=== PATIENT | female | born 1930 | race Caucasian/White ===

== ENCOUNTER → 2017-04-27 | Outpatient (CLI) | payer MEDICARE ==
--- NOTE | 2017-04-28 13:19 | REP ---
Whole body PET CT scan: The the patient reportedly had a CT of the chest and no [facility] on 04/15/2017. Images from that study are not available for review. However, the CT CT scan accompanying the PET scan today demonstrates a nodule in the upper lobe of the left lung posterior O lateral inferiorly. Additionally there is a second nodule in the apex of the left lung. There is a third nodule posteriorly in the left upper lobe abutting the major fissure. There is a subsegmental infiltrate in the deep posterior sulcus of the left lung. Whole-body scanning is performed from skull base to the upper thighs. Neck and supraclavicular areas: There is artifactual on hypermetabolic uptake in tonsillar tissues and in the left scalenus muscles. Chest: There is artifactual uptake in the subscapularis and supraspinatus muscles of the shoulders bilaterally. The most intense uptake is in the right subscapularis. None of the three left upper lobe lung nodules demonstrates hypermetabolic uptake: The standard uptake value of the nodule in the left apex is 1.5. The standard uptake value of the nodule posteriorly abutting the major fissure is 1.1. The standard uptake value in the nodule that is posterolateral inferiorly in the left lung is 1.3. There are no hypermetabolic foci in the chest elsewhere. Abdomen, pelvis and upper thighs: There are no hypermetabolic foci. Impression: There are no hypermetabolic foci. The three nodules identified in the upper lobe of the left lung demonstrates non hypermetabolic uptake. The study is performed with 10 mCi of F 18 FDG. Signed by Rafy Pickett MD 04/28/2017 09:44 A
== END ==
LOC: M PLARAD 07:35
PROVIDERS: ATTEND Family Medicine
DX: R91.8 Other nonspecific abnormal finding of lung field (principal)
CPT/HCPCS: 78815; A9552

== ENCOUNTER → 2017-06-22 | Outpatient (REF) | payer MEDICARE ==
[2017-06-22 18:35] LABS: IMMUNOGLOBULIN G 1870 MG/DL (681-1648); IMMUNOGLOBULIN M 135 MG/DL (40-230); TOTAL PROTEIN 7.9 GM/DL (6.4-8.2)
[2017-06-24 13:54] LABS: ALBUMIN % 49.4 % (55.8-66.1); GAMMA GLOBULIN % 23.6 % (11.1-18.8)
[2017-06-25 00:07] LABS: BETA 2 MICROGLOBULIN 4.8 mg/L (0.6-2.4); FREE KAPPA LIGHT CHAINS SERUM 106.9 mg/L (3.3-19.4); FREE LAMBDA LIGHT CHAINS SERUM 63.1 mg/L (5.7-26.3); KAPPA/LAMBDA RATIO SERUM 1.69 (0.26-1.65)
== END ==
LOC: M LAB REF 16:43
PROVIDERS: ATTEND Internal Medicine Medical Oncology
DX: D64.9 Anemia, unspecified (principal)

== ENCOUNTER → 2017-10-13 | Outpatient (CLI) | payer MEDICARE ==
[2017-10-13 12:57] LABS: BASO % 0.1 % (0.0-1.0); EOS # 0.1 10^3/uL (0.0-0.50); EOS % 0.8 % (0.0-3.0); HEMATOCRIT 35.6 % (36.0-47.0); HEMOGLOBIN 11.9 g/dl (12.0-16.0); IMMATURE GRANULOCYTE # 0.2 10^3/uL (0-0); IMMATURE GRANULOCYTE % 1.4 % (0-0); LYMPH # 1.2 10^3/uL (1.5-4.5); LYMPH % 10.2 % (24.0-44.0); MEAN CORPUSCULAR HEMOGLOBIN 33.1 pg (27.0-33.0); MEAN CORPUSCULAR HGB CONC 33.4 g/dl (32.0-36.5); MEAN CORPUSCULAR VOLUME 98.9 fl (80.0-96.0); MONO # 0.8 10^3/uL (0.0-0.8); NEUTROPHILS # 9.3 10^3/uL (1.8-7.7); NEUTROPHILS % 80.5 % (36.0-66.0); PLATELET COUNT, AUTOMATED 232 10^3/uL (150-450); RED CELL DISTRIBUTION WIDTH 13.6 % (11.5-14.5); WHITE BLOOD COUNT 11.5 10^3/uL (4.0-10.0)
[2017-10-13 13:15] LABS: INR 3.71; PROTHROMBIN TIME 38.6 SECONDS (12.4-14.5)
== END ==
LOC: M LAB 10:36
DX: N18.9 Chronic kidney disease, unspecified (principal)

== ENCOUNTER → 2017-10-13 | Outpatient (CLI) | payer MEDICARE ==
[2017-10-13 12:57] LABS: HEMATOCRIT 35.6 % (36.0-47.0); HEMOGLOBIN 11.8 g/dl (12.0-16.0); MEAN CORPUSCULAR HGB CONC 33.1 g/dl (32.0-36.5); MEAN CORPUSCULAR VOLUME 99.4 fl (80.0-96.0); PLATELET COUNT, AUTOMATED 225 10^3/uL (150-450); RED BLOOD COUNT 3.58 10^6/uL (4.00-5.40); RED CELL DISTRIBUTION WIDTH 13.5 % (11.5-14.5); WHITE BLOOD COUNT 11.2 10^3/uL (4.0-10.0)
[2017-10-13 13:03] LABS: APPEARANCE, URINE CLEAR (CLEAR); BACTERIA, URINE AUTO NEGATIVE (NEGATIVE); BILIRUBIN, URINE AUTO NEGATIVE (NEGATIVE); BLOOD, URINE BLOOD NEGATIVE (NEGATIVE); COLOR, URINE YELLOW (YELLOW); GLUCOSE, URINE (UA) AUTO NEGATIVE (NEGATIVE); KETONE, URINE AUTO NEGATIVE (NEGATIVE); LEUKOCYTE ESTERASE, URINE AUTO 1+ (NEGATIVE); NITRITE, URINE AUTO NEGATIVE (NEGATIVE); PROTEIN, URINE AUTO NEGATIVE (NEGATIVE); RBC, URINE AUTO 1 /HPF (0-3); SPECIFIC GRAVITY URINE AUTO 1.009 (1.002-1.035); SQUAMOUS EPITHELIAL CELL UR AU 0 /HPF (0-6); UROBILINOGEN, URINE AUTO 0.2 mg/dL (0.0-2.0); WBC, URINE AUTO 4 /HPF (0-3)
[2017-10-13 13:15] LABS: PROTHROMBIN TIME 37.7 SECONDS (12.4-14.5)
[2017-10-13 13:25] LABS: ERYTHROCYTE SEDIMENTATION RATE 50 mm/hr (0-42)
[2017-10-13 14:01] LABS: ALBUMIN 3.7 GM/DL (3.2-5.2); ALBUMIN/GLOBULIN RATIO 0.84 (1.00-1.93); ALKALINE PHOSPHATASE 45 U/L (45-117); ALT/SGPT 40 U/L (12-78); ANION GAP 7 MEQ/L (8-16); AST/SGOT 39 U/L (7-37); BILIRUBIN,TOTAL 0.6 MG/DL (0.2-1.0); BLOOD UREA NITROGEN 65 MG/DL (7-18); CALCIUM LEVEL 9.3 MG/DL (8.8-10.2); CARBON DIOXIDE LEVEL 33 MEQ/L (21-32); CHLORIDE LEVEL 97 MEQ/L (98-107); CREATININE FOR GFR 2.16 MG/DL (0.55-1.30); GLOMERULAR FILTRATION RATE 23.1 (>32); GLUCOSE, FASTING 94 MG/DL (70-100); POTASSIUM SERUM 4.2 MEQ/L (3.5-5.1); SODIUM LEVEL 137 MEQ/L (136-145); TOTAL PROTEIN 8.1 GM/DL (6.4-8.2)
== END ==
LOC: M ADMPAT 10:25
DX: Z01.818 Encounter for other preprocedural examination (principal); M25.561 Pain in right knee; Z79.01 Long term (current) use of anticoagulants; Z79.899 Other long term (current) drug therapy
CPT/HCPCS: 71046

== ENCOUNTER → 2017-12-27 | Outpatient (REF) | payer MEDICARE ==
[2017-12-27 19:03] LABS: FERRITIN 428 NG/ML (8-252); IRON (FE) 90 UG/DL (50-170); PERCENT SATURATION 36.6 % (13.2-45.0); TOTAL IRON BINDING CAPACITY 246 UG/DL (250-450)
== END ==
LOC: M LAB REF 17:25
DX: N30.10 Interstitial cystitis (chronic) without hematuria (principal); D50.9 Iron deficiency anemia, unspecified
CPT/HCPCS: 83550

== ENCOUNTER → 2018-01-02 | Outpatient (REF) | payer MEDICARE ==
[2018-01-02 18:02] LABS: ERYTHROCYTE SEDIMENTATION RATE 78 mm/hr (0-42)
[2018-01-05 08:06] LABS: BETA 2 MICROGLOBULIN 6.4 mg/L (0.6-2.4)
== END ==
LOC: M LAB REF 16:35
DX: D64.9 Anemia, unspecified (principal)
CPT/HCPCS: 82232

== ENCOUNTER → 2018-01-19 | Outpatient (REF) | payer MEDICARE ==
[2018-01-19 19:49] LABS: APPEARANCE, URINE HAZY (CLEAR); BACTERIA, URINE AUTO NEGATIVE (NEGATIVE); BILIRUBIN, URINE AUTO NEGATIVE (NEGATIVE); BLOOD, URINE BLOOD NEGATIVE (NEGATIVE); COLOR, URINE YELLOW (YELLOW); GLUCOSE, URINE (UA) AUTO NEGATIVE (NEGATIVE); KETONE, URINE AUTO NEGATIVE (NEGATIVE); LEUKOCYTE ESTERASE, URINE AUTO NEGATIVE (NEGATIVE); NITRITE, URINE AUTO NEGATIVE (NEGATIVE); PROTEIN, URINE AUTO NEGATIVE (NEGATIVE); RBC, URINE AUTO 0 /HPF (0-3); SQUAMOUS EPITHELIAL CELL UR AU 0 /HPF (0-6); UROBILINOGEN, URINE AUTO 0.2 mg/dL (0.0-2.0); WBC, URINE AUTO 0 /HPF (0-3)
== END ==
LOC: M SMT 17:14
DX: R33.9 Retention of urine, unspecified (principal)
CPT/HCPCS: 81001

== ENCOUNTER → 2018-02-17 | Outpatient (REF) | payer MEDICARE ==
[2018-02-17 18:21] LABS: APPEARANCE, URINE HAZY (CLEAR); BACTERIA, URINE AUTO NEGATIVE (NEGATIVE); BILIRUBIN, URINE AUTO NEGATIVE (NEGATIVE); BLOOD, URINE BLOOD NEGATIVE (NEGATIVE); COLOR, URINE YELLOW (YELLOW); GLUCOSE, URINE (UA) AUTO NEGATIVE (NEGATIVE); KETONE, URINE AUTO NEGATIVE (NEGATIVE); LEUKOCYTE ESTERASE, URINE AUTO NEGATIVE (NEGATIVE); NITRITE, URINE AUTO NEGATIVE (NEGATIVE); PROTEIN, URINE AUTO NEGATIVE (NEGATIVE); RBC, URINE AUTO 0 /HPF (0-3); SPECIFIC GRAVITY URINE AUTO 1.005 (1.002-1.035); SQUAMOUS EPITHELIAL CELL UR AU 0 /HPF (0-6); UROBILINOGEN, URINE AUTO 0.2 mg/dL (0.0-2.0); WBC, URINE AUTO 0 /HPF (0-3)
== END ==
LOC: M LAB REF 17:05
DX: M17.11 Unilateral primary osteoarthritis, right knee (principal); Z79.899 Other long term (current) drug therapy; Z87.440 Personal history of urinary (tract) infections
CPT/HCPCS: 81001

== ENCOUNTER → 2018-02-20 | Outpatient (CLI) | payer MEDICARE | LOC: M ADMPAT 11:32 | DX: Z01.818 Encounter for other preprocedural examination (principal); M17.11 Unilateral primary osteoarthritis, right knee ==

== ENCOUNTER 2018-02-27 07:15 | Inpatient (IN) | payer MEDICARE ==
[2018-02-27] MEDS ORDERED: EPINEPHrine INJ 1 MG/ML 1ML AMP As Ordered (07:25)
[2018-02-27] MEDS ORDERED: LIDOCAINE 1% MDV 20ML VIAL SQ (07:45)
[2018-02-27 08:03] LABS: INR 1.15; PROTHROMBIN TIME 14.9 SECONDS (12.4-14.5)
[2018-02-27] MEDS: LR 1,000 ML IV ×4 (08:11→20:49)
[2018-02-27 08:13] LABS: GLUCOSE, FASTING 95 MG/DL (70-100)
[2018-02-27] MEDS ORDERED: fentaNYL 100 MCG/2 ML INJECTION (J3010) As Ordered ×2 (08:14→09:29)
[2018-02-27] MEDS ORDERED: MIDAZOLAM INJ 2 MG/2 ML VIAL (J2250) As Ordered (08:14)
[2018-02-27] MEDS: fentaNYL 100 MCG/2 ML INJECTION (J3010) IV (08:41)
[2018-02-27] MEDS: MIDAZOLAM INJ 2 MG/2 ML VIAL (J2250) IV (08:41)
[2018-02-27] MEDS ORDERED: LIDOCAINE 2% INJ 100 MG/5 ML SDV (FOR ANES.) As Ordered (09:29)
[2018-02-27] MEDS ORDERED: HYDROmorphone HCL 2 MG/ML 1ML VIAL (J1170) As Ordered (09:43)
[2018-02-27] MEDS ORDERED: ONDANSETRON 4MG/2ML VIAL (J2405) As Ordered (10:02)
[2018-02-27] MEDS ORDERED: HYDROCORTISONE 100 MG/2 ML VIAL (J1720) As Ordered (10:18)
[2018-02-27] MEDS: ceFAZolin 1GM INJ (J0690 PER 500MG) As Ordered (10:27)
[2018-02-27] MEDS ORDERED: ROPIvacaine 0.5% 30 ML INJECTION (J2795 PER 1MG) (10:30)
[2018-02-27] MEDS ORDERED: EPINEPHrine INJ 1 MG/ML 1ML AMP (10:30)
[2018-02-27] MEDS ORDERED: ePHEDrine SULFATE 25 MG/5 ML(5MG/ML) SYRINGE As Ordered (10:43)
[2018-02-27] MEDS ORDERED: PHENYLEPHRINE INJ 10MG/ML VIAL (J2370) As Ordered (10:43)
[2018-02-27] MEDS: BUPIVACAINE HCL 0.25% 10 ML VIAL As Ordered (10:49)
[2018-02-27] MEDS: BUPIVACAINE LIPOSOME/PF 1.3% 20 ML VIAL (13.3MG/ML)(EXPAREL) As Ordered (10:49)
[2018-02-27] MEDS: TRANEXAMIC ACID 100 MG/ML 10ML VIAL As Ordered (10:58)
[2018-02-27] MEDS ORDERED: MORPHINE 1MG/ML IN 0.9% NACL 100ML IV BAG As Ordered (11:57)
[2018-02-27] MEDS ORDERED: METOCLOPRAMIDE INJ 10MG/2ML VIAL (J2765) IV (12:15)
[2018-02-27] MEDS ORDERED: PERCOCET 5MG/325MG TAB PO (12:15)
[2018-02-27] MEDS ORDERED: MEPERIDINE INJ 25 MG/ML VIAL (J2175) IV (12:15)
[2018-02-27] MEDS ORDERED: fentaNYL 100 MCG/2 ML INJECTION (J3010) IV (12:15)
[2018-02-27] MEDS ORDERED: ONDANSETRON 4MG/2ML VIAL (J2405) IV ×2 (12:15→12:30)
[2018-02-27] MEDS ORDERED: EPIDURAL/PCA KEYS XX (12:30)
[2018-02-27] MEDS ORDERED: FLEET ENEMA PR (12:30)
[2018-02-27] MEDS ORDERED: NALBUPHINE HCL 10 MG/ML AMP (J2300) IV (12:30)
[2018-02-27] MEDS ORDERED: NALOXONE INJ 0.4 MG/1 ML VIAL (J2310) IV (12:30)
[2018-02-27] MEDS ORDERED: MORPHINE 1MG/ML IN 0.9% NACL 100ML IV BAG IV (12:30)
[2018-02-27] MEDS ORDERED: diphenhydrAMINE INJ 50MG/ML VIAL (J1200) IV (12:30)
[2018-02-27] MEDS: predniSONE 1 MG TAB PO (17:51)
[2018-02-27] MEDS: FEBUXOSTAT 40 MG TABLET (ULORIC) PO (17:51)
[2018-02-27] MEDS: CALCITRIOL 0.25 MCG CAP (S0169) PO (17:52)
[2018-02-27] MEDS: WARFARIN SOD 5 MG TAB PO (17:52)
[2018-02-27] MEDS: MULTIVITAMINS/MINERALS THERAP 1 TAB PO (17:53)
[2018-02-27] MEDS: VITAMIN D 1,000 INTERNATIONAL UNITS TABLET PO (17:53)
[2018-02-27] MEDS: OMEPRAZOLE 20 MG CAP PO (17:53)
[2018-02-27] MEDS: ATORVASTATIN 10 MG TAB PO (20:48)
[2018-02-27] MEDS: METOPROLOL SUCC (TopROL XL) 50MG **XL** TAB PO (20:48)
[2018-02-28 06:27] LABS: HEMATOCRIT 22.7 % (36.0-47.0); HEMOGLOBIN 7.4 g/dl (12.0-15.5); MEAN CORPUSCULAR HEMOGLOBIN 32.7 pg (27.0-33.0); MEAN CORPUSCULAR HGB CONC 32.6 g/dl (32.0-36.5); MEAN CORPUSCULAR VOLUME 100.4 fl (80.0-96.0); PLATELET COUNT, AUTOMATED 133 10^3/uL (150-450); RED BLOOD COUNT 2.26 10^6/uL (4.00-5.40); RED CELL DISTRIBUTION WIDTH 14.5 % (11.5-14.5); WHITE BLOOD COUNT 11.7 10^3/uL (4.0-10.0)
[2018-02-28] MEDS ORDERED: ONDANSETRON 4 MG TAB (S0181) PO (06:30)
[2018-02-28] MEDS ORDERED: PERCOCET 5MG/325MG TAB PO (06:30)
[2018-02-28 07:43] LABS: ANION GAP 9 MEQ/L (8-16); BLOOD UREA NITROGEN 72 MG/DL (7-18); CALCIUM LEVEL 8.5 MG/DL (8.8-10.2); CARBON DIOXIDE LEVEL 26 MEQ/L (21-32); CHLORIDE LEVEL 106 MEQ/L (98-107); CREATININE FOR GFR 2.32 MG/DL (0.55-1.30); GLOMERULAR FILTRATION RATE 21.2 (>32); GLUCOSE, FASTING 138 MG/DL (70-100); POTASSIUM SERUM 4.6 MEQ/L (3.5-5.1); SODIUM LEVEL 141 MEQ/L (136-145)
[2018-02-28 09:55] LABS: FOLATE 21.5 NG/ML (>5.4); VITAMIN B12 LEVEL 553 PG/ML (247-911)
[2018-02-28] MEDS: MOM 30ML SUSPENSION UDC PO (10:08)
[2018-02-28] MEDS: SENOKOT S TAB PO ×2 (10:08→21:00)
[2018-02-28] MEDS: MIRALAX *UNIT DOSE* 17GM PACKET PO (10:08)
[2018-02-28] MEDS: predniSONE 1 MG TAB PO (10:09)
[2018-02-28] MEDS: VITAMIN D 1,000 INTERNATIONAL UNITS TABLET PO (10:09)
[2018-02-28] MEDS: METOPROLOL SUCC (TopROL XL) 50MG **XL** TAB PO ×2 (10:10→21:22)
[2018-02-28] MEDS: PERCOCET 5MG/325MG TAB PO (10:11)
[2018-02-28] MEDS: FEBUXOSTAT 40 MG TABLET (ULORIC) PO (10:11)
[2018-02-28] MEDS: OMEPRAZOLE 20 MG CAP PO (10:11)
[2018-02-28] MEDS: MULTIVITAMINS/MINERALS THERAP 1 TAB PO (10:11)
[2018-02-28 10:25] LABS: IMMEDIATE SPIN CROSSMATCH 1 1
[2018-02-28 10:26] LABS: FERRITIN 363 NG/ML (8-252); IRON (FE) 19 UG/DL (50-170); PERCENT SATURATION 9.4 % (13.2-45.0); TOTAL IRON BINDING CAPACITY 203 UG/DL (250-450)
[2018-02-28] MEDS: WARFARIN SOD 5 MG TAB PO (16:43)
[2018-02-28 20:35] LABS: INR 1.53; PROTHROMBIN TIME 18.8 SECONDS (12.4-14.5)
[2018-02-28] MEDS: ACETAMINOPHEN TAB 650MG DOSE (2X325MG) PO (21:22)
[2018-02-28] MEDS: ATORVASTATIN 10 MG TAB PO (21:22)
[2018-03-01 07:56] LABS: HEMATOCRIT 24.8 % (36.0-47.0); HEMOGLOBIN 8.3 g/dl (12.0-15.5); MEAN CORPUSCULAR HEMOGLOBIN 32.9 pg (27.0-33.0); MEAN CORPUSCULAR HGB CONC 33.5 g/dl (32.0-36.5); MEAN CORPUSCULAR VOLUME 98.4 fl (80.0-96.0); PLATELET COUNT, AUTOMATED 127 10^3/uL (150-450); RED BLOOD COUNT 2.52 10^6/uL (4.00-5.40); RED CELL DISTRIBUTION WIDTH 16.1 % (11.5-14.5); WHITE BLOOD COUNT 10.8 10^3/uL (4.0-10.0)
[2018-03-01 08:15] LABS: INR 1.67; PROTHROMBIN TIME 20.2 SECONDS (12.4-14.5)
[2018-03-01] MEDS: MULTIVITAMINS/MINERALS THERAP 1 TAB PO (09:36)
[2018-03-01] MEDS: OMEPRAZOLE 20 MG CAP PO (09:36)
[2018-03-01] MEDS: VITAMIN D 1,000 INTERNATIONAL UNITS TABLET PO (09:36)
[2018-03-01] MEDS: predniSONE 1 MG TAB PO (09:37)
[2018-03-01] MEDS: ACETAMINOPHEN 500 MG TAB PO (09:37)
[2018-03-01] MEDS: traMADol 50 MG TAB PO (09:38)
[2018-03-01] MEDS: FEBUXOSTAT 40 MG TABLET (ULORIC) PO (09:38)
[2018-03-01] MEDS: METOPROLOL SUCC (TopROL XL) 50MG **XL** TAB PO (09:39)
[2018-03-01] MEDS: SENOKOT S TAB PO (09:40)
[2018-03-01] MEDS: MIRALAX *UNIT DOSE* 17GM PACKET PO (09:40)
[2018-03-01] MEDS: MOM 30ML SUSPENSION UDC PO (09:40)
[2018-03-01] MEDS ORDERED: WARFARIN SOD 3 MG TAB PO (17:00)
== END 2018-03-01 13:35 | DRG 470 ==
LOC: M OR 07:15 → M MS5PR 12:55
PROVIDERS: Orthopaedic Surgery
PROC: 0SRC0J9 Replacement of Right Knee Joint with Synthetic Substitute, Cemented, Open Approach (ICD-10-PCS; principal; 2018-02-27 09:26)
PROC: 30233N1 Transfusion of Nonautologous Red Blood Cells into Peripheral Vein, Percutaneous Approach (ICD-10-PCS; 2018-02-27 09:26)
DX: M17.11 Unilateral primary osteoarthritis, right knee (principal); N18.4 Chronic kidney disease, stage 4 (severe); I13.0 Hypertensive heart and chronic kidney disease with heart failure and stage 1 through stage 4 chronic kidney disease, or unspecified chronic kidney disease; D62 Acute posthemorrhagic anemia; K21.9 Gastro-esophageal reflux disease without esophagitis; E78.5 Hyperlipidemia, unspecified; I50.9 Heart failure, unspecified; I48.91 Unspecified atrial fibrillation; I25.10 Atherosclerotic heart disease of native coronary artery without angina pectoris; R26.89 Other abnormalities of gait and mobility; M10.9 Gout, unspecified; D63.1 Anemia in chronic kidney disease; Z96.652 Presence of left artificial knee joint; Z87.442 Personal history of urinary calculi; Z90.49 Acquired absence of other specified parts of digestive tract; Z90.710 Acquired absence of both cervix and uterus; Z79.52 Long term (current) use of systemic steroids; Z79.01 Long term (current) use of anticoagulants; Z79.899 Other long term (current) drug therapy; Z88.2 Allergy status to sulfonamides; Z91.048 Other nonmedicinal substance allergy status

== ENCOUNTER 2018-03-01 13:35 | Inpatient (IN) | payer MEDICARE ==
[~2018-03-01 13:35] MED LIST: BISACODYL 10 MG SUPP PR; BISACODYL 5 MG TAB PO; DENOSUMAB 60MG/1ML SYRINGE (PROLIA) (J0897 PER 1MG) (FOR ONCOLOGY) SC; FLEET ENEMA PR; MOM 30ML SUSPENSION UDC PO; ONDANSETRON 4 MG TAB (S0181) PO
[2018-03-01] MEDS: ACETAMINOPHEN 500 MG TAB PO ×2 (16:26→21:15)
[2018-03-01] MEDS: WARFARIN SOD 3 MG TAB PO (16:26)
[2018-03-01] MEDS: ATORVASTATIN 10 MG TAB PO (21:14)
[2018-03-01] MEDS: SENOKOT S TAB PO (21:15)
[2018-03-01] MEDS: METOPROLOL SUCC (TopROL XL) 50MG **XL** TAB PO (21:15)
[2018-03-01] MEDS: POTASSIUM CHLORIDE 10 MEQ SR TABLET PO (21:15)
[2018-03-01] MEDS: MAGNESIUM OXIDE 400 MG TAB (MAG-OX) PO (21:16)
[2018-03-02] MEDS: traMADol 50 MG TAB PO ×2 (04:03→13:23)
[2018-03-02 07:03] LABS: EOS # 0.1 10^3/uL (0.0-0.50); EOS % 1.7 % (0.0-3.0); HEMATOCRIT 23.2 % (36.0-47.0); HEMOGLOBIN 7.7 g/dl (12.0-15.5); IMMATURE GRANULOCYTE % 0.5 % (0-3.0); LYMPH # 0.7 10^3/uL (1.5-4.5); LYMPH % 8.4 % (24.0-44.0); MEAN CORPUSCULAR HEMOGLOBIN 32.9 pg (27.0-33.0); MEAN CORPUSCULAR HGB CONC 33.2 g/dl (32.0-36.5); MEAN CORPUSCULAR VOLUME 99.1 fl (80.0-96.0); MONO # 0.8 10^3/uL (0.0-0.8); MONO % 10.4 % (0.0-5.0); NEUTROPHILS # 6.4 10^3/uL (1.8-7.7); PLATELET COUNT, AUTOMATED 120 10^3/uL (150-450); RED BLOOD COUNT 2.34 10^6/uL (4.00-5.40); RED CELL DISTRIBUTION WIDTH 15.6 % (11.5-14.5); WHITE BLOOD COUNT 8.1 10^3/uL (4.0-10.0)
[2018-03-02 07:14] LABS: INR 2.28
[2018-03-02 07:16] LABS: ALBUMIN 2.4 GM/DL (3.2-5.2); ALKALINE PHOSPHATASE 33 U/L (45-117); ALT/SGPT 7 U/L (12-78); ANION GAP 8 MEQ/L (8-16); AST/SGOT 19 U/L (7-37); BILIRUBIN,TOTAL 0.5 MG/DL (0.2-1.0); BLOOD UREA NITROGEN 74 MG/DL (7-18); CALCIUM LEVEL 8.2 MG/DL (8.8-10.2); CARBON DIOXIDE LEVEL 25 MEQ/L (21-32); CHLORIDE LEVEL 110 MEQ/L (98-107); CREATININE FOR GFR 2.09 MG/DL (0.55-1.30); GLUCOSE, FASTING 90 MG/DL (70-100); POTASSIUM SERUM 4.2 MEQ/L (3.5-5.1); SODIUM LEVEL 143 MEQ/L (136-145); TOTAL PROTEIN 6.4 GM/DL (6.4-8.2)
[2018-03-02] MEDS: OMEGA-3 1050MG CAPSULE PO (08:20)
[2018-03-02] MEDS: predniSONE 1 MG TAB PO (08:20)
[2018-03-02] MEDS: FEBUXOSTAT 40 MG TABLET (ULORIC) PO (08:20)
[2018-03-02] MEDS: METOPROLOL SUCC (TopROL XL) 50MG **XL** TAB PO ×2 (08:21→21:34)
[2018-03-02] MEDS: MAGNESIUM OXIDE 400 MG TAB (MAG-OX) PO ×2 (08:21→21:34)
[2018-03-02] MEDS: ACETAMINOPHEN 500 MG TAB PO ×3 (08:21→21:35)
[2018-03-02] MEDS: MIRALAX *UNIT DOSE* 17GM PACKET PO (08:21)
[2018-03-02] MEDS: MULTIVITAMINS/MINERALS THERAP 1 TAB PO (08:22)
[2018-03-02] MEDS: CALCIUM/VITAMIN D 500 MG TAB PO (08:22)
[2018-03-02] MEDS: OMEPRAZOLE 20 MG CAP PO (08:22)
[2018-03-02] MEDS: SENOKOT S TAB PO ×2 (08:22→21:00)
[2018-03-02] MEDS: POTASSIUM CHLORIDE 10 MEQ SR TABLET PO ×2 (08:22→21:35)
[2018-03-02] MEDS: FUROSEMIDE 40 MG TAB PO ×2 (08:22→12:23)
[2018-03-02] MEDS: VITAMIN D 1,000 INTERNATIONAL UNITS TABLET PO (08:22)
[2018-03-02] MEDS: NS 1,000 ML IV (15:11)
[2018-03-02] MEDS: WARFARIN SOD 4 MG TAB PO (16:10)
[2018-03-02] MEDS ORDERED: WARFARIN SOD 4 MG TAB PO (17:00)
[2018-03-02 17:19] LABS: IMMEDIATE SPIN CROSSMATCH 1 2
[2018-03-02] MEDS: ATORVASTATIN 10 MG TAB PO (21:34)
[2018-03-03] MEDS: traMADol 50 MG TAB PO (06:33)
[2018-03-03 08:01] LABS: INR 2.11; PROTHROMBIN TIME 24.4 SECONDS (12.4-14.5)
[2018-03-03] MEDS: VITAMIN D 1,000 INTERNATIONAL UNITS TABLET PO (08:52)
[2018-03-03] MEDS: MULTIVITAMINS/MINERALS THERAP 1 TAB PO (08:52)
[2018-03-03] MEDS: MAGNESIUM OXIDE 400 MG TAB (MAG-OX) PO ×2 (08:52→21:15)
[2018-03-03] MEDS: predniSONE 1 MG TAB PO (08:52)
[2018-03-03] MEDS: CALCITRIOL 0.25 MCG CAP (S0169) PO (08:53)
[2018-03-03] MEDS: FEBUXOSTAT 40 MG TABLET (ULORIC) PO (08:53)
[2018-03-03] MEDS: CALCIUM/VITAMIN D 500 MG TAB PO (08:53)
[2018-03-03] MEDS: POTASSIUM CHLORIDE 10 MEQ SR TABLET PO ×2 (08:53→21:14)
[2018-03-03] MEDS: OMEPRAZOLE 20 MG CAP PO (08:53)
[2018-03-03] MEDS: SENOKOT S TAB PO ×2 (08:53→21:00)
[2018-03-03] MEDS: FUROSEMIDE 40 MG TAB PO ×2 (08:53→12:57)
[2018-03-03] MEDS: METOPROLOL SUCC (TopROL XL) 50MG **XL** TAB PO ×2 (08:54→21:14)
[2018-03-03] MEDS: MIRALAX *UNIT DOSE* 17GM PACKET PO (08:54)
[2018-03-03] MEDS: ACETAMINOPHEN 500 MG TAB PO ×3 (08:54→21:15)
[2018-03-03] MEDS: OMEGA-3 1050MG CAPSULE PO (08:54)
[2018-03-03 11:38] LABS: ANION GAP 8 MEQ/L (8-16); BLOOD UREA NITROGEN 71 MG/DL (7-18); CALCIUM LEVEL 8.2 MG/DL (8.8-10.2); CARBON DIOXIDE LEVEL 28 MEQ/L (21-32); CHLORIDE LEVEL 107 MEQ/L (98-107); CREATININE FOR GFR 1.93 MG/DL (0.55-1.30); GLOMERULAR FILTRATION RATE 26.3 (>32); GLUCOSE, FASTING 116 MG/DL (70-100); MAGNESIUM LEVEL 2.1 MG/DL (1.8-2.4); POTASSIUM SERUM 4.3 MEQ/L (3.5-5.1); SODIUM LEVEL 143 MEQ/L (136-145)
[2018-03-03] MEDS: NS 1,000 ML IV (12:07)
[2018-03-03] MEDS: DICLOFENAC EPOLAMINE 1.3 % PATCH TOP ×2 (12:58→21:16)
[2018-03-03 14:58] LABS: BASO % 0.2 % (0.0-1.0); EOS # 0.3 10^3/uL (0.0-0.50); EOS % 3.9 % (0.0-3.0); HEMATOCRIT 30.5 % (36.0-47.0); HEMOGLOBIN 10.5 g/dl (12.0-15.5); IMMATURE GRANULOCYTE % 0.5 % (0-3.0); LYMPH # 0.6 10^3/uL (1.5-4.5); LYMPH % 6.7 % (24.0-44.0); MEAN CORPUSCULAR HEMOGLOBIN 33.3 pg (27.0-33.0); MEAN CORPUSCULAR HGB CONC 34.4 g/dl (32.0-36.5); MEAN CORPUSCULAR VOLUME 96.8 fl (80.0-96.0); MONO # 0.8 10^3/uL (0.0-0.8); MONO % 9.5 % (0.0-5.0); NEUTROPHILS # 6.8 10^3/uL (1.8-7.7); NEUTROPHILS % 79.2 % (36.0-66.0); PLATELET COUNT, AUTOMATED 171 10^3/uL (150-450); RED BLOOD COUNT 3.15 10^6/uL (4.00-5.40); RED CELL DISTRIBUTION WIDTH 15.7 % (11.5-14.5); WHITE BLOOD COUNT 8.5 10^3/uL (4.0-10.0)
[2018-03-03] MEDS ORDERED: WARFARIN SOD 3 MG TAB PO (17:00)
[2018-03-03] MEDS: WARFARIN SOD 3 MG TAB PO (17:40)
[2018-03-03] MEDS: ATORVASTATIN 10 MG TAB PO (21:14)
[2018-03-04 07:45] LABS: INR 1.86
[2018-03-04] MEDS: MIRALAX *UNIT DOSE* 17GM PACKET PO (09:00)
[2018-03-04] MEDS: SENOKOT S TAB PO ×2 (09:00→20:16)
[2018-03-04] MEDS: OMEPRAZOLE 20 MG CAP PO (09:16)
[2018-03-04] MEDS: DICLOFENAC EPOLAMINE 1.3 % PATCH TOP ×2 (09:16→20:34)
[2018-03-04] MEDS: FUROSEMIDE 40 MG TAB PO ×2 (09:16→12:59)
[2018-03-04] MEDS: FEBUXOSTAT 40 MG TABLET (ULORIC) PO (09:17)
[2018-03-04] MEDS: METOPROLOL SUCC (TopROL XL) 50MG **XL** TAB PO ×2 (09:17→20:34)
[2018-03-04] MEDS: CALCIUM/VITAMIN D 500 MG TAB PO (09:17)
[2018-03-04] MEDS: MAGNESIUM OXIDE 400 MG TAB (MAG-OX) PO ×2 (09:17→20:34)
[2018-03-04] MEDS: predniSONE 1 MG TAB PO (09:18)
[2018-03-04] MEDS: OMEGA-3 1050MG CAPSULE PO (09:18)
[2018-03-04] MEDS: MULTIVITAMINS/MINERALS THERAP 1 TAB PO (09:18)
[2018-03-04] MEDS: VITAMIN D 1,000 INTERNATIONAL UNITS TABLET PO (09:18)
[2018-03-04] MEDS: ACETAMINOPHEN 500 MG TAB PO ×3 (09:18→20:34)
[2018-03-04] MEDS: POTASSIUM CHLORIDE 10 MEQ SR TABLET PO ×2 (09:19→20:33)
[2018-03-04] MEDS: WARFARIN SOD 4 MG TAB PO (17:06)
[2018-03-04] MEDS: ATORVASTATIN 10 MG TAB PO (20:33)
[2018-03-04] MEDS: traMADol 50 MG TAB PO (23:30)
[2018-03-05] MEDS: DICLOFENAC EPOLAMINE 1.3 % PATCH TOP ×2 (07:57→20:37)
[2018-03-05] MEDS: FUROSEMIDE 40 MG TAB PO ×2 (07:58→12:25)
[2018-03-05] MEDS: traMADol 50 MG TAB PO (07:58)
[2018-03-05] MEDS: VITAMIN D 1,000 INTERNATIONAL UNITS TABLET PO (07:59)
[2018-03-05] MEDS: CALCIUM/VITAMIN D 500 MG TAB PO (07:59)
[2018-03-05] MEDS: POTASSIUM CHLORIDE 10 MEQ SR TABLET PO ×2 (07:59→20:38)
[2018-03-05] MEDS: predniSONE 1 MG TAB PO (07:59)
[2018-03-05] MEDS: ACETAMINOPHEN 500 MG TAB PO ×3 (07:59→20:38)
[2018-03-05] MEDS: MULTIVITAMINS/MINERALS THERAP 1 TAB PO (07:59)
[2018-03-05] MEDS: OMEPRAZOLE 20 MG CAP PO (07:59)
[2018-03-05] MEDS: MAGNESIUM OXIDE 400 MG TAB (MAG-OX) PO ×2 (08:00→20:37)
[2018-03-05] MEDS: METOPROLOL SUCC (TopROL XL) 50MG **XL** TAB PO ×2 (08:00→20:37)
[2018-03-05] MEDS: FEBUXOSTAT 40 MG TABLET (ULORIC) PO (08:00)
[2018-03-05] MEDS: OMEGA-3 1050MG CAPSULE PO (08:01)
[2018-03-05] MEDS: MIRALAX *UNIT DOSE* 17GM PACKET PO (08:01)
[2018-03-05] MEDS: SENOKOT S TAB PO ×2 (08:02→20:37)
[2018-03-05 08:18] LABS: INR 1.92; PROTHROMBIN TIME 22.6 SECONDS (12.4-14.5)
[2018-03-05] MEDS: WARFARIN SOD 3 MG TAB PO (16:13)
[2018-03-05] MEDS ORDERED: WARFARIN SOD 3 MG TAB PO (17:00)
[2018-03-05] MEDS: ATORVASTATIN 10 MG TAB PO (20:37)
[2018-03-06] MEDS: traMADol 50 MG TAB PO (01:46)
[2018-03-06 07:38] LABS: BASO % 0.5 % (0.0-1.0); EOS # 0.6 10^3/uL (0.0-0.50); EOS % 8.8 % (0.0-3.0); HEMATOCRIT 31.6 % (36.0-47.0); HEMOGLOBIN 10.5 g/dl (12.0-15.5); IMMATURE GRANULOCYTE % 0.5 % (0-3.0); LYMPH # 1.1 10^3/uL (1.5-4.5); LYMPH % 17.2 % (24.0-44.0); MEAN CORPUSCULAR HEMOGLOBIN 32.2 pg (27.0-33.0); MEAN CORPUSCULAR HGB CONC 33.2 g/dl (32.0-36.5); MEAN CORPUSCULAR VOLUME 96.9 fl (80.0-96.0); MONO # 0.6 10^3/uL (0.0-0.8); MONO % 9.7 % (0.0-5.0); NEUTROPHILS # 4.1 10^3/uL (1.8-7.7); NEUTROPHILS % 63.3 % (36.0-66.0); PLATELET COUNT, AUTOMATED 207 10^3/uL (150-450); RED BLOOD COUNT 3.26 10^6/uL (4.00-5.40); RED CELL DISTRIBUTION WIDTH 14.7 % (11.5-14.5); WHITE BLOOD COUNT 6.5 10^3/uL (4.0-10.0)
[2018-03-06 07:50] LABS: INR 2.15; PROTHROMBIN TIME 24.8 SECONDS (12.4-14.5)
[2018-03-06 08:00] LABS: ANION GAP 9 MEQ/L (8-16); BLOOD UREA NITROGEN 74 MG/DL (7-18); CALCIUM LEVEL 8.3 MG/DL (8.8-10.2); CARBON DIOXIDE LEVEL 29 MEQ/L (21-32); CHLORIDE LEVEL 107 MEQ/L (98-107); CREATININE FOR GFR 2.08 MG/DL (0.55-1.30); GLOMERULAR FILTRATION RATE 24.1 (>32); GLUCOSE, FASTING 86 MG/DL (70-100); POTASSIUM SERUM 4.2 MEQ/L (3.5-5.1); SODIUM LEVEL 145 MEQ/L (136-145)
[2018-03-06] MEDS: VITAMIN D 1,000 INTERNATIONAL UNITS TABLET PO (09:04)
[2018-03-06] MEDS: OMEPRAZOLE 20 MG CAP PO (09:05)
[2018-03-06] MEDS: ACETAMINOPHEN 500 MG TAB PO ×3 (09:05→21:34)
[2018-03-06] MEDS: CALCIUM/VITAMIN D 500 MG TAB PO (09:05)
[2018-03-06] MEDS: POTASSIUM CHLORIDE 10 MEQ SR TABLET PO ×2 (09:05→21:33)
[2018-03-06] MEDS: OMEGA-3 1050MG CAPSULE PO (09:06)
[2018-03-06] MEDS: CALCITRIOL 0.25 MCG CAP (S0169) PO (09:06)
[2018-03-06] MEDS: FUROSEMIDE 40 MG TAB PO ×2 (09:06→12:04)
[2018-03-06] MEDS: METOPROLOL SUCC (TopROL XL) 50MG **XL** TAB PO ×2 (09:06→21:33)
[2018-03-06] MEDS: MULTIVITAMINS/MINERALS THERAP 1 TAB PO (09:06)
[2018-03-06] MEDS: MAGNESIUM OXIDE 400 MG TAB (MAG-OX) PO ×2 (09:06→21:32)
[2018-03-06] MEDS: FEBUXOSTAT 40 MG TABLET (ULORIC) PO (09:06)
[2018-03-06] MEDS: SENOKOT S TAB PO ×2 (09:07→21:33)
[2018-03-06] MEDS: MIRALAX *UNIT DOSE* 17GM PACKET PO (09:07)
[2018-03-06] MEDS: predniSONE 1 MG TAB PO (09:07)
[2018-03-06] MEDS: DICLOFENAC EPOLAMINE 1.3 % PATCH TOP ×2 (09:07→21:34)
[2018-03-06] MEDS: WARFARIN SOD 4 MG TAB PO (16:04)
[2018-03-06] MEDS ORDERED: WARFARIN SOD 4 MG TAB PO (17:00)
[2018-03-06] MEDS: ATORVASTATIN 10 MG TAB PO (21:32)
[2018-03-07 07:40] LABS: INR 2.32; PROTHROMBIN TIME 26.3 SECONDS (12.4-14.5)
[2018-03-07] MEDS: MULTIVITAMINS/MINERALS THERAP 1 TAB PO (10:11)
[2018-03-07] MEDS: OMEGA-3 1050MG CAPSULE PO (10:11)
[2018-03-07] MEDS: FUROSEMIDE 40 MG TAB PO ×2 (10:11→13:25)
[2018-03-07] MEDS: DICLOFENAC EPOLAMINE 1.3 % PATCH TOP ×2 (10:11→21:32)
[2018-03-07] MEDS: CALCIUM/VITAMIN D 500 MG TAB PO (10:11)
[2018-03-07] MEDS: OMEPRAZOLE 20 MG CAP PO (10:12)
[2018-03-07] MEDS: MAGNESIUM OXIDE 400 MG TAB (MAG-OX) PO ×2 (10:12→21:31)
[2018-03-07] MEDS: VITAMIN D 1,000 INTERNATIONAL UNITS TABLET PO (10:12)
[2018-03-07] MEDS: POTASSIUM CHLORIDE 10 MEQ SR TABLET PO ×2 (10:12→21:30)
[2018-03-07] MEDS: FEBUXOSTAT 40 MG TABLET (ULORIC) PO (10:13)
[2018-03-07] MEDS: predniSONE 1 MG TAB PO (10:13)
[2018-03-07] MEDS: ACETAMINOPHEN 500 MG TAB PO ×3 (10:14→21:32)
[2018-03-07] MEDS: SENOKOT S TAB PO ×3 (10:14→21:31)
[2018-03-07] MEDS: MIRALAX *UNIT DOSE* 17GM PACKET PO (10:14)
[2018-03-07] MEDS: METOPROLOL SUCC (TopROL XL) 50MG **XL** TAB PO ×2 (10:14→21:31)
[2018-03-07] MEDS: WARFARIN SOD 3 MG TAB PO (17:15)
[2018-03-07] MEDS: ATORVASTATIN 10 MG TAB PO (21:31)
[2018-03-08] MEDS: traMADol 50 MG TAB PO (05:54)
[2018-03-08 07:29] LABS: INR 2.35; PROTHROMBIN TIME 26.6 SECONDS (12.4-14.5)
[2018-03-08] MEDS: MIRALAX *UNIT DOSE* 17GM PACKET PO (09:00)
[2018-03-08] MEDS: VITAMIN D 1,000 INTERNATIONAL UNITS TABLET PO (09:42)
[2018-03-08] MEDS: OMEGA-3 1050MG CAPSULE PO (09:44)
[2018-03-08] MEDS: predniSONE 1 MG TAB PO (09:44)
[2018-03-08] MEDS: ACETAMINOPHEN 500 MG TAB PO ×3 (09:44→21:22)
[2018-03-08] MEDS: SENOKOT S TAB PO ×2 (09:45→21:21)
[2018-03-08] MEDS: CALCIUM/VITAMIN D 500 MG TAB PO (09:45)
[2018-03-08] MEDS: METOPROLOL SUCC (TopROL XL) 50MG **XL** TAB PO ×2 (09:45→21:21)
[2018-03-08] MEDS: MULTIVITAMINS/MINERALS THERAP 1 TAB PO (09:45)
[2018-03-08] MEDS: FEBUXOSTAT 40 MG TABLET (ULORIC) PO (09:45)
[2018-03-08] MEDS: POTASSIUM CHLORIDE 10 MEQ SR TABLET PO ×2 (09:46→21:21)
[2018-03-08] MEDS: FUROSEMIDE 40 MG TAB PO ×2 (09:46→12:16)
[2018-03-08] MEDS: OMEPRAZOLE 20 MG CAP PO (09:46)
[2018-03-08] MEDS: MAGNESIUM OXIDE 400 MG TAB (MAG-OX) PO ×2 (09:47→21:20)
[2018-03-08] MEDS: DICLOFENAC EPOLAMINE 1.3 % PATCH TOP ×2 (09:48→21:22)
[2018-03-08] MEDS: WARFARIN SOD 4 MG TAB PO (17:00)
[2018-03-08] MEDS: ATORVASTATIN 10 MG TAB PO (21:21)
[2018-03-09 07:17] LABS: INR 2.44
[2018-03-09] MEDS: OMEGA-3 1050MG CAPSULE PO (08:37)
[2018-03-09] MEDS: MAGNESIUM OXIDE 400 MG TAB (MAG-OX) PO (08:38)
[2018-03-09] MEDS: VITAMIN D 1,000 INTERNATIONAL UNITS TABLET PO (08:38)
[2018-03-09] MEDS: OMEPRAZOLE 20 MG CAP PO (08:38)
[2018-03-09] MEDS: FEBUXOSTAT 40 MG TABLET (ULORIC) PO (08:38)
[2018-03-09] MEDS: CALCIUM/VITAMIN D 500 MG TAB PO (08:38)
[2018-03-09] MEDS: METOPROLOL SUCC (TopROL XL) 50MG **XL** TAB PO (08:38)
[2018-03-09] MEDS: SENOKOT S TAB PO (08:39)
[2018-03-09] MEDS: POTASSIUM CHLORIDE 10 MEQ SR TABLET PO (08:39)
[2018-03-09] MEDS: MULTIVITAMINS/MINERALS THERAP 1 TAB PO (08:39)
[2018-03-09] MEDS: DICLOFENAC EPOLAMINE 1.3 % PATCH TOP (08:40)
[2018-03-09] MEDS: ACETAMINOPHEN 500 MG TAB PO (08:40)
[2018-03-09] MEDS: MIRALAX *UNIT DOSE* 17GM PACKET PO (08:41)
[2018-03-09] MEDS: predniSONE 1 MG TAB PO (08:41)
[2018-03-09] MEDS: FUROSEMIDE 40 MG TAB PO (08:42)
== END 2018-03-09 12:45 | disposition home health service (06) | DRG 560 ==
LOC: M PM&R 03-08 16:15
PROC: 30233N1 Transfusion of Nonautologous Red Blood Cells into Peripheral Vein, Percutaneous Approach (ICD-10-PCS; principal; 2018-03-02)
DX: Z47.1 Aftercare following joint replacement surgery (principal); N18.4 Chronic kidney disease, stage 4 (severe); I13.0 Hypertensive heart and chronic kidney disease with heart failure and stage 1 through stage 4 chronic kidney disease, or unspecified chronic kidney disease; I50.32 Chronic diastolic (congestive) heart failure; K21.9 Gastro-esophageal reflux disease without esophagitis; E78.5 Hyperlipidemia, unspecified; I48.91 Unspecified atrial fibrillation; D50.0 Iron deficiency anemia secondary to blood loss (chronic); M81.0 Age-related osteoporosis without current pathological fracture; I25.10 Atherosclerotic heart disease of native coronary artery without angina pectoris; M10.9 Gout, unspecified; Z95.5 Presence of coronary angioplasty implant and graft; Z90.49 Acquired absence of other specified parts of digestive tract; Z87.442 Personal history of urinary calculi; Z96.653 Presence of artificial knee joint, bilateral; Z79.52 Long term (current) use of systemic steroids; Z79.01 Long term (current) use of anticoagulants; Z79.899 Other long term (current) drug therapy; Z91.040 Latex allergy status; Z91.048 Other nonmedicinal substance allergy status; Z88.2 Allergy status to sulfonamides; Z88.1 Allergy status to other antibiotic agents; Z90.710 Acquired absence of both cervix and uterus

== ENCOUNTER → 2018-11-30 | Outpatient (REF) | payer MEDICARE ==
[~2018-11-30] MED LIST changes: +AMLO2.5T3 PO; +ATOR1TAB19 PO; -BISACODYL 10 MG SUPP PR; -BISACODYL 5 MG TAB PO; +CALCTAB68 PO; +COUM1TAB14 PO; +COUM1TAB19 PO; +CRAN500C2 PO; +CRANCAP10 PO; -DENOSUMAB 60MG/1ML SYRINGE (PROLIA) (J0897 PER 1MG) (FOR ONCOLOGY) SC; +FEBU40TA PO; +FISH100049 PO; -FLEET ENEMA PR; +FURO40TA2 PO; +HM C500T3 PO; +ICAPCAP PO; +MAGN1TAB26 PO; +METH-855 PO; +METO1TAB7 PO; -MOM 30ML SUSPENSION UDC PO; +MULT1TAB10 PO; +NITR0.4S14 SL; +OMEP20CA3 PO; -ONDANSETRON 4 MG TAB (S0181) PO; +PEG1POW PO; +PERC5TAB12 PO; +POTA10TA16 PO; +PRED1TABL PO; +PROC1INJ5 SC; +PROL60SO SC; +ROCA0.25 PO; +SENN1TAB40 PO; +TRAM50TA2 PO; +TYLE500T78 PO; +VITA100067 PO; +VITAD1000T PO; +WARF-23 PO
[2018-11-30 19:33] LABS: APPEARANCE, URINE CLEAR (CLEAR); BACTERIA, URINE AUTO NEGATIVE (NEGATIVE); BILIRUBIN, URINE AUTO NEGATIVE (NEGATIVE); BLOOD, URINE BLOOD NEGATIVE (NEGATIVE); COLOR, URINE YELLOW (YELLOW); GLUCOSE, URINE (UA) AUTO NEGATIVE (NEGATIVE); KETONE, URINE AUTO NEGATIVE (NEGATIVE); LEUKOCYTE ESTERASE, URINE AUTO NEGATIVE (NEGATIVE); NITRITE, URINE AUTO NEGATIVE (NEGATIVE); PROTEIN, URINE AUTO NEGATIVE (NEGATIVE); RBC, URINE AUTO 0 /HPF (0-3); SPECIFIC GRAVITY URINE AUTO 1.006 (1.002-1.035); SQUAMOUS EPITHELIAL CELL UR AU 0 /HPF (0-6); UROBILINOGEN, URINE AUTO 0.2 mg/dL (0.0-2.0); WBC, URINE AUTO 0 /HPF (0-3)
== END ==
LOC: M SMT 17:08
PROVIDERS: ATTEND Nurse Practitioner Women's Health
DX: R32 Unspecified urinary incontinence (principal)
CPT/HCPCS: 51798; 81001; 87088; 87186; G0463

== ENCOUNTER 2019-09-13 16:35 | Inpatient (IN) | payer MEDICARE ==
[~2019-09-13] VITALS: Ht 152.4 cm; Wt 73.8 kg
[2019-09-13] MEDS: WARFARIN SOD 2.5 MG TAB PO SCH (04:44)
[~2019-09-13 16:35] MED LIST changes: +CHOL100029 PO; -FEBU40TA PO; +FEBU40TA4 PO; +OMEP-172 PO; -OMEP20CA3 PO; +SENN-53 PO; -SENN1TAB40 PO; -VITAD1000T PO
[2019-09-13] MEDS ORDERED: ASPI81TA85 PO (19:56)
[2019-09-13] MEDS ORDERED: LEVO50TA5 PO (19:56)
[2019-09-13 20:37] LABS: BASO % 0.2 % (0.0-1.0); EOS % 0.2 % (0.0-3.0); HEMATOCRIT 35.9 % (36.0-47.0); HEMOGLOBIN 11.1 g/dl (12.0-15.5); LYMPH # 0.5 10^3/uL (1.5-5.0); LYMPH % 4.3 % (24.0-44.0); MEAN CORPUSCULAR HEMOGLOBIN 33.3 pg (27.0-33.0); MEAN CORPUSCULAR HGB CONC 30.9 g/dl (32.0-36.5); MEAN CORPUSCULAR VOLUME 107.8 fl (80.0-96.0); MONO # 0.6 10^3/uL (0.0-0.8); MONO % 4.9 % (0.0-5.0); NEUTROPHILS # 10.8 10^3/uL (1.5-8.5); NEUTROPHILS % 90.1 % (36.0-66.0); PLATELET COUNT, AUTOMATED 189 10^3/uL (150-450); RED BLOOD COUNT 3.33 10^6/uL (4.00-5.40); WHITE BLOOD COUNT 11.9 10^3/uL (4.0-10.0)
[2019-09-13] MEDS: DOCUSATE SODIUM 100 MG CAP PO SCH (21:00)
[2019-09-13 21:05] LABS: ALBUMIN 3.2 GM/DL (3.2-5.2); ALT/SGPT 49 U/L (12-78); BILIRUBIN,DIRECT < 0.1 MG/DL (0.0-0.2); BILIRUBIN,TOTAL 0.7 MG/DL (0.2-1.0); BLOOD UREA NITROGEN 75 MG/DL (7-18); C REACTIVE PROTEIN QUANTITATIV 3.62 MG/DL (0.00-0.30); CALCIUM LEVEL 8.5 MG/DL (8.8-10.2); CARBON DIOXIDE LEVEL 20 MEQ/L (21-32); CHLORIDE LEVEL 112 MEQ/L (98-107); CREATININE FOR GFR 2.09 MG/DL (0.55-1.30); GLOMERULAR FILTRATION RATE 23.8 (>32); GLUCOSE, FASTING 106 MG/DL (70-100); POTASSIUM SERUM 5.9 MEQ/L (3.5-5.1); SODIUM LEVEL 140 MEQ/L (136-145); TOTAL PROTEIN 7.8 GM/DL (6.4-8.2)
[2019-09-13 21:14] LABS: ERYTHROCYTE SEDIMENTATION RATE 46 mm/hr (0-30)
[2019-09-13 21:21] LABS: PROTHROMBIN TIME 31.1 SECONDS (11.8-14.0)
--- NOTE | 2019-09-13 23:13 | HPEPDOC ---
[facility] Medical History & Physical Date of Admission Sep 13, 2019 Date of Service: Sep 14, 2019 Primary Care Physician: Maira Ramos DO [facility] Attending Physician: JAGRUTI MANDUJANO MD History and Physical TIME OF SERVICE: 12 AM CHIEF COMPLAINT: Right foot pain HISTORY OF PRESENT ILLNESS: This is an 89-year-old female who presents to hospital with complaints of right foot pain since May. She reports that this all started with an ingrown toenail that was clipped off and "shaving" of some skin on the lateral aspect of her toe. Thereafter, she developed infection of the skin affecting toe which has spread to the foot. Since Tuesday she has developed worsening redness, pain and swelling of the right foot, therefore, she decided come to the hospital for evaluation today. Per discussion with the ER provider, pulses were faint but palpable by Doppler; ESR and CRP were elevated; report from x-ray of the foot is pending. Dr. Nguyễn was consulted and recommended MRI of the foot. REVIEW OF SYSTEMS: 12 point review of systems negative except as listed in HPI PAST MEDICAL/ SURGICAL HISTORY: Chronic hypertension / chronic diastolic congestive heart failure Atrial fibrillation Chronic CAD status post stents OA Gout CKD 4 Prediabetes Status post TAVR Osteoporosis on Prolia Hypothyroidism GERD Unsteady gait, uses walker Status post hysterectomy Status post cholecystectomy Nephrolithiasis status post lithotripsy Status post left total knee arthropathy Status post lung biopsy Status post bilateral carpal tunnel surgery SOCIAL HISTORY: She does not smoke FAMILY HISTORY: Lung cancer Coronary artery disease ALLERGIES: Please see below. HOME MEDICATIONS: Please see below. PHYSICAL EXAMINATION: VITAL SIGNS: Please see below. GEN: well-nourished / well developed/ NAD INTEGUMENT: The lower aspect of the right foot is red and swollen. There is a 3 cm x 2 cm ulcer that is draining serous fluid at the lateral aspect of the right hallux HEENT: NCAT CVS: RRR/NMRG LUNGS: lungs are clear to auscultation bilaterally on room air ABDOMEN: the abdomen is soft & not tender with palpation MSK/EXTREMITIES: range of motion intact in all 4 extremities NEURO: CN 2-12 are grossly intact / speech is not dysarthric PSYCH: alert and oriented to person place and time/ able to understand and follow all commands LABORATORY DATA: See below. IMAGING: X-ray of the foot is pending MICROBIOLOGY: Please see below ASSESSMENT: Ms. Soto is an 89-year-old female with past medical history of HTN, diastolic CHF, atrial fibrillation, chronic CAD, OA, gout, CKD 4, prediabetes, and unsteady gait who is admitted for management of a right toe ulcer. PLAN: 1. Right toe ulcer The WBC count, ESR and CRP are elevated. Report from x-ray of the foot is pending. The patient reports that she's been told she has early diabetes, but we do not have a recent A1c [employer]. Plan: Admit to medical floor/ podiatry consult ( per Dr. Nguyễn's recommendations, we'll order MRI of the foot without contrast because of renal impairment) vancomycin for MSSA coverage and cefepime for MRSA coverage / since her random glucose is elevated we will follow-up A1c 2. Chronic hypertension / chronic diastolic CHF Her blood pressures controlled and she is clinically euvolemic Plan: Continue metoprolol, furosemide with potassium & magnesium supplements 3. Atrial fibrillation Plan: Continue metoprolol and warfarin 4. Chronic CAD status post stents Plan: Continue aspirin, atorvastatin, metoprolol, nitroglycerin 5. Status post TAVR INR is therapeutic Plan: Continue warfarin 6. CKD 4 Renal function is baseline Plan: Avoid nephrotoxins 7. Hypothyroidism. Plan: Continue levothyroxine 8. Gout Plan: Continue Febuxostat 9. 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5L, Monocytes # (Auto) 0.6, Eosinophils # (Auto) 0.0, Basophils # (Auto) 0.0, Nucleated Red Blood Cells % (auto) 0.0, Erythrocyte Sedimentation Rate 46H, Anion Gap 8, Glomerular Filtration Rate 23.8L, Lactic Acid Level 1.7, Calcium Level 8.5L, Total Bilirubin 0.7, Direct Bilirubin < 0.1, Aspartate Amino Transf (AST/SGOT) 67H, Alanine Aminotransferase (ALT/SGPT) 49, Alkaline Phosphatase 54, C-Reactive Protein, Quantitative 3.62H, Total Protein 7.8, Albumin 3.2, Albumin/Globulin Ratio 0.70L 09/13/19 20:57: Prothrombin Time 31.1H, Prothromb Time International Ratio 3.00 CBC/BMP Laboratory Tests 09/13/19 20:20 Microbiology Microbiology 09/13/19 Blood Culture, Received Pending 09/13/19 Blood Culture, Received Pending Home Medications Scheduled Acetaminophen (Acetaminophen) 500 Mg Tablet, 500 MG PO Q6H Aspirin (Aspirin EC) 81 Mg Tablet.dr, 81 MG PO DAILY Atorvastatin Calcium (Atorvastatin Calcium) 40 Mg Tablet, 40 MG PO QHS Cranberry Fruit Extract (Cranberry) 500 Mg Capsule, 500 MG PO BID Denosumab Injection (Prolia) 60 Mg/Ml Kierra, 60 MG SC ASDIRECTED EVERY 6 MONTHS: LAST DOSE SOMETIME IN JUNE Epoetin Umair (Procrit) 10,000 Unit/Ml Inj, 10,000 UNIT SC ASDIRECTED Febuxostat (Uloric) 40 Mg Tablet, 40 MG PO DAILY Furosemide (Furosemide) 40 Mg Tablet, 40 MG PO BID Levothyroxine Sodium (Synthroid) 50 Mcg Tablet, 50 MCG PO QHS Magnesium Oxide (Magnesium Oxide) 400 Mg Tablet, 400 MG PO BID Methenamine Hippurate (Methenamine Hippurate) 1 Gm Tab, 1 GM PO DAILY Metoprolol Succinate (Metoprolol Succinate) 100 Mg Tab.er.24h, 50 MG PO DAILY Metoprolol Succinate (Metoprolol Succinate) 100 Mg Tab.er.24h, 100 MG PO QHS Multivitamins (Thera M Plus Tablet) 1 Each Tablet, 1 TAB PO DAILY [place]rose-3 Fatty Acids/Fish Oil (Fish Oil 1,000 mg Capsule) 1 Each Capsule, 1,000 MG PO DAILY Omeprazole (Omeprazole) 20 Mg Capsule.dr, 20 MG PO DAILY Potassium Chloride (Potassium Chloride) 10 Meq Tab.er.prt, 10 MEQ PO BID Prednisone (Prednisone) 1 Mg Tab, 2 MG PO DAILY TAKES WITH 5MG FOR 7MG TOTAL Prednisone (Prednisone) 10 Mg Tablet, 5 MG PO DAILY TAKES WITH 2MG FOR 7MG TOTAL Vit A/Vit C/Vit E/Zinc/Copper (Icaps Areds Softgel) 1 Each Capsule, 1 CAP PO BID Warfarin Sodium (Warfarin Sodium) 2.5 Mg Tablet, 2.5 MG PO QPM TAKES AROUND 1700 Scheduled PRN Acetaminophen with Codeine (Tylenol with Codeine #3 Tablet) 1 Each Tablet, 1 TAB PO TID PRN for PAIN Nitroglycerin (Nitroglycerin) 0.4 Mg Sub, 0.4 MG SL NITRO PRN for CHEST PAIN Tramadol HCl (Tramadol HCl) 50 Mg Tablet, 50 MG PO Q6H PRN for PAIN Allergies Coded Allergies: adhesive tape (Verified Allergy, Mild, Itching, blisters, also bandaids, 01/08/19) pravastatin (Verified Allergy, Mild, ITCHY, 09/14/19) Sulfa (Sulfonamide Antibiotics) (Verified Allergy, Unknown, 01/08/19) latex (Verified Allergy, Unknown, Sensitivity, 01/08/19) ciprofloxacin (Verified Adverse Reaction, Intermediate, Decreased kidney function, 01/08/19) A-FIB/CHADSVASC A-FIB History Current/History of A-Fib/PAF?: Yes Current PO Anticoag Therapy: Yes JAGRUTI MANDUJANO MD Sep 13, 2019 23:13
[2019-09-13] MEDS ORDERED: MOM 30ML SUSPENSION UDC PO PRN (23:15)
[2019-09-13] MEDS ORDERED: MAALOX 30 ML SUSP *UDC PO PRN (23:15)
[2019-09-13] MEDS ORDERED: VANCOMYCIN HCL 1,000 MG, VIAL MATE ADAPTER 1 EACH in D5W 250 ML IV SCH (23:15)
[2019-09-14] MEDS ORDERED: OMEP-172 PO (00:16)
[2019-09-14] MEDS ORDERED: SYNT50TA PO (00:16)
[2019-09-14] MEDS ORDERED: FEBU40TA4 PO (00:16)
[2019-09-14] MEDS ORDERED: VITMTA PO (00:16)
[2019-09-14] MEDS ORDERED: TRAM50TA2 PO (00:16)
[2019-09-14] MEDS ORDERED: WARF-18 PO (00:16)
[2019-09-14] MEDS ORDERED: TYLETAB14 PO (00:16)
[2019-09-14] MEDS ORDERED: FURO40TA2 PO (00:16)
[2019-09-14] MEDS ORDERED: FISH1000 PO (00:16)
[2019-09-14] MEDS ORDERED: POTA10TA67 PO (00:16)
[2019-09-14] MEDS ORDERED: CVS500CA5 PO (00:16)
[2019-09-14] MEDS ORDERED: ATOR40TA75 PO (00:16)
[2019-09-14] MEDS ORDERED: METO1TAB33 PO ×2 (00:16)
[2019-09-14] MEDS ORDERED: ASPI-161 PO (00:16)
[2019-09-14] MEDS ORDERED: ACET-683 PO (00:16)
[2019-09-14] MEDS ORDERED: PRED10TA2 PO (00:16)
[2019-09-14] MEDS ORDERED: MAGN400T3 PO (00:16)
[2019-09-14] MEDS ORDERED: ICAPCAP2 PO (00:16)
[2019-09-14 00:43] VITALS: BP 140/76
--- NOTE | 2019-09-14 02:21 | PHACANCOPD ---
PHARMACY VANCOMYCIN DOSING Pt Demographics Demographics Patient Age:89 , Weight:72.730 , Gender: female Adjusted Body Weight Date: 09/14/19, Adjusted Body Weight: Kg Events Past 24 Hours Events Past 24 Hours: NO: Dialysis, Diuretic Therapy, Change in CrCl, Fever, Elevation in WBC, Pending Diagnostics, Pending Procedures, Other Vancomycin Vancomycin Target Ranges: 15-20 mcg/ml Vancomycin Load Y/N: Yes Load Dose Date Time Vancomycin Load Dose: 1500mg Date: 09-14 Time: 0400 Vancomycin Dose Date: 09/14/19. Current Vancomycin Dose: Intermittent Dosing?: Yes Labs Labs Item Value Date Time White Blood Count 11.9 10^3/uL H 09/13/192019 Creatinine 2.09 MG/DL H 09/13/192019 Blood Urea Nitrogen 75 MG/DL H 09/13/192019 Glomerular Filtration Rate 23.8 L 09/13/192019 Vital Signs Label Value Date Time Patient Temperature 96.4 degrees F 09/14/19 0020 Temperature Source Oral 09/14/19 0020 Micro Microbiology 09/13/19 Blood Culture, Received Pending 09/13/19 Blood Culture, Received Pending Creatinine Clearance Date:09/14/19. Creatinine Clearance: [~14]. Pending Labs Random -04 in am Assessment and Plan Maintaining Current Dose?: Yes Reason for dose change: No Dose Change Pharmacist Note Pharmacist Note Date: 09/14/19. Pharmacist note:Will monitor and dose as needed. [facility] Sep 14, 2019 02:21
[2019-09-14] MEDS ORDERED: VANCOMYCIN INTERMITTENT/PULSE DOSING BY CLINICAL PHARMACIST PER DOSING PROTOCOL XX SCH (02:30)
[2019-09-14] MEDS: CEFEPIME HCL 1 GM in D5W MINI-BAG PLUS 50 ML IV SCH ×2 (02:41→12:00)
[2019-09-14] MEDS ORDERED: NITROGLYCERIN 0.4 MG SUBL TABLET SL PRN (02:45)
[2019-09-14] MEDS ORDERED: ACETAMINOPH W/CODEINE #3 TAB UD PO PRN (02:45)
[2019-09-14] MEDS: traMADol 50 MG TAB PO PRN ×3 (02:48→18:13)
[2019-09-14] MEDS ORDERED: VANCOMYCIN HCL 500 MG in D5W MINI-BAG PLUS 100 ML IV ONE (03:00)
[2019-09-14 03:42] LABS: INR 2.87; PROTHROMBIN TIME 29.9 SECONDS (11.8-14.0)
[2019-09-14] MEDS ORDERED: VANCOMYCIN HCL 1,000 MG, VIAL MATE ADAPTER 1 EACH in D5W 250 ML IV ONE (04:00)
[2019-09-14] MEDS: ACETAMINOPHEN 500 MG TAB PO SCH ×3 (05:19→18:11)
[2019-09-14 06:00] VITALS: BP 139/75
[2019-09-14 06:04] LABS: HEMATOCRIT 30.7 % (36.0-47.0); HEMOGLOBIN 9.8 g/dl (12.0-15.5); MEAN CORPUSCULAR HEMOGLOBIN 33.9 pg (27.0-33.0); MEAN CORPUSCULAR HGB CONC 31.9 g/dl (32.0-36.5); MEAN CORPUSCULAR VOLUME 106.2 fl (80.0-96.0); PLATELET COUNT, AUTOMATED 167 10^3/uL (150-450); RED BLOOD COUNT 2.89 10^6/uL (4.00-5.40); WHITE BLOOD COUNT 7.9 10^3/uL (4.0-10.0)
[2019-09-14 06:36] LABS: CALCIUM LEVEL 8.3 MG/DL (8.8-10.2); CREATININE FOR GFR 2.11 MG/DL (0.55-1.30); GLOMERULAR FILTRATION RATE 23.6 (>32); POTASSIUM SERUM 3.9 MEQ/L (3.5-5.1)
--- NOTE | 2019-09-14 06:51 | REP ---
Clinical: Cellulitis and ulcers. Technique: AP, lateral, bilateral oblique views of the right foot. 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 Osteoarthritic degenerative changes are appreciated. No subcutaneous emphysema or foreign body. No fracture or dislocation. Impression: Chronic-appearing changes. Electronically Signed by Babatunde Geiger MD 09/14/2019 06:43 A
[2019-09-14] MEDS: ASPIRIN 81 MG ENTERIC TAB PO SCH (08:20)
[2019-09-14] MEDS: METOPROLOL SUCC (TopROL XL) 100MG *XL* TAB PO SCH ×2 (08:21→20:37)
[2019-09-14] MEDS: predniSONE 5 MG TAB PO SCH (08:21)
[2019-09-14] MEDS: FEBUXOSTAT 40 MG TABLET (ULORIC) PO SCH (08:21)
[2019-09-14] MEDS: MULTIVITAMINS/MINERALS THERAP 1 TAB PO SCH (08:22)
[2019-09-14] MEDS: FUROSEMIDE 40 MG TAB PO SCH ×2 (08:22→18:12)
[2019-09-14] MEDS: POTASSIUM CHLORIDE 10 MEQ SR TABLET PO SCH ×2 (08:22→20:36)
[2019-09-14] MEDS: MAGNESIUM OXIDE 400 MG TAB (MAG-OX) PO SCH ×2 (08:22→20:36)
[2019-09-14] MEDS: OMEPRAZOLE 20 MG CAP PO SCH (08:22)
[2019-09-14] MEDS: predniSONE 1 MG TAB PO SCH (08:30)
[2019-09-14] MEDS: DOCUSATE SODIUM 100 MG CAP PO SCH ×2 (08:30→19:40)
[2019-09-14 14:00] VITALS: BP 120/65
--- NOTE | 2019-09-14 15:11 | REP ---
Bilateral lower extremity arterial Doppler ultrasound: History: Right foot ulcer and pain. Findings: Ankle brachial indices could not be accomplished on either side due to noncompressible vessels. Advanced hip vascular calcification is seen throughout the lower extremity arteries bilaterally. There is evidence of a mild stenosis in the proximal superficial femoral artery on the right. The left superficial femoral artery is less than optimally seen. No high-grade stenosis or occlusion is identified. Triphasic and biphasic Doppler waveforms are noted bilaterally. Right lower extremity arterial Doppler velocity chart: CF A eighth 36 cm/S Profunda 35 Proximal SFA 37/85/36 Mid SFA 35 Distal SFA 21 Popliteal 22 Proximal AT A 31 Tibioperoneal trunk 22 Proximal MEDIA RELATIONS MANAGER 15 Distal MEDIA RELATIONS MANAGER 20 Distal AT A 11 Left lower extremity arterial Doppler velocity chart: CF A 39 cm/S Profunda 22 Proximal SFA 31 Mid SFA 35 Distal SFA 21 Popliteal 29 Proximal AT A 21 Tibioperoneal trunk 25 Proximal MEDIA RELATIONS MANAGER not seen Distal MEDIA RELATIONS MANAGER 19 Distal AT A 32 Electronically Signed by Karl Brice MD 09/14/2019 03:02 P
--- NOTE | 2019-09-14 15:26 | IPNPDOC ---
Text Note Date of Service The patient was seen on 09/14/19. NOTE Subjective: Patient complains on mild right foot pain. Patient denies fever, c hills, nausea, vomiting, shortness of breath, diarrhea or dysuria Objective: GEN: well-nourished / well developed/ NAD INTEGUMENT: The lower aspect of the right foot is red and swollen. There is a 3 cm x 2 cm ulcer that is draining serous fluid at the lateral aspect of the right hallux HEENT: NCAT CVS: S1-S2 LUNGS: CTA ABDOMEN: the abdomen is soft & not tender with palpation MSK/EXTREMITIES: range of motion intact in all 4 extremities NEURO: CN 2-12 are grossly intact / speech is not dysarthric PSYCH: alert and oriented to person place and time/ able to understand and follow all commands Patient is an 89-year-old female with past medical history of HTN, diastolic CHF, atrial fibrillation, chronic CAD, OA, gout, CKD 4, prediabetes, and unsteady gait who is admitted for management of a right toe ulcer. 1. Right toe ulcer Patient has leukocytosis with elevated ESR and CRP There is high suspicious for osteomyelitis Await MRI. 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 Osteoarthritic degenerative changes are appreciated. No subcutaneous emphysema or foreign body. No fracture or dislocation. Appreciate/agree with airplane dispatcher consult Pain management Vancomycin IV, cefepime IV 2. Chronic hypertension / chronic diastolic CHF Continue home cardioprotective medications 3. Atrial fibrillation Continue home cardioprotective medications Heart rate is under control 4. Chronic CAD Patient denies any chest pain status post stents Continue aspirin, atorvastatin, metoprolol, nitroglycerin 5. 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 CKD 4 Continue to monitor 7. Hypothyroidism. Continue levothyroxine 8. Gout Continue Febuxostat 9. GERD Continue omeprazole 10 Obesity Her BMI is 31.3 [place] consult in the outpatient settings VS,Alee, I+O VS, Alee, I+O Laboratory Tests 09/13/19 20:20 09/14/19 05:49 Vital Signs Date Time Temp Pulse Resp B/P (MAP) Pulse Ox O2 Delivery O2 Flow Rate FiO2 09/14/19 14:00 97.6 75 18 120/65 (83) 96 09/14/19 06:00 Room Air I&O- Last 24 Hours up to 6 AM 09/14/19 06:00 Intake Total 240 ml Output Total 0 ml Balance 240 ml GA COLVIN DO Sep 14, 2019 15:25
--- NOTE | 2019-09-14 17:15 | CR ---
DATE OF PODIATRY CONSULTATION: 09/14/2019 CHIEF COMPLAINT: Patient seen today for evaluation of red and painful right lower extremity. Patient states she has had pain in her foot since May. She states that she initially went to [facility] in [place], [place] where she had an ingrown toenail and a callus on the side of her right big toe. The ingrown toenail was treated and this subsequently improved. The callus on the side of her right foot was debrided. The patient states that there was a wound in that location, which did not improve. She states that when she has a bandage on her foot it seems that her ulcers got worse and now she has ulcers on 2nd, 3rd and 4th toes and on the dorsolateral aspect of her right foot. She also complains of pain when she puts her foot in an elevated position. She states this pain is relieved when she brings her foot to a lower position. She is seen today for evaluation of painful ulcerated right foot. PAST MEDICAL AND SURGICAL HISTORY: Chronic hypertension. Chronic diastolic congestive heart failure. Atrial fibrillation. Coronary arterial disease with stent. Osteoarthritis. Gout. Chronic kidney disease, stage IV. Prediabetes. Osteoporosis. Hypothyroidism. Gastroesophageal reflux disease. Patient states she has difficulty walking and uses her walker and has knee and hip pain. Patient is status post hysterectomy, cholecystectomy, nephrolithiasis, post lithotripsy, left and right knee arthroplasty, lung biopsy, bilateral carpel tunnel surgery. DIAGNOSTIC STUDIES: X-rays were taken in her right foot revealing no signs of osteomyelitis but numerous soft tissues calcifications noted. Lower extremity bilateral Doppler exam reveals proximal mild stenosis of the superficial femoral artery. An ankle brachial index could not be obtained due to noncompressible arteries, however, at the patient's bedside utilizing a hand held Doppler, the dorsalis pedis artery could not be appreciated bilateral. Posterior tibial artery was monophasic on the left side. Poor sound was obtained on the right posterior tibial artery. There is dependent rubor noted of the forefoot as well. Evaluation of the patient's dermatological system reveals ulceration on the medial right hallux measuring 1.5 cm by approximately 1 cm with a dark eschar, superficial in nature. There is a stage II type blister on the dorsal aspect of the 2nd, 3rd and 4th toes of the right foot, superficial in nature, and there is tenderness and a larger blister noted on the dorsolateral aspect of the right foot measuring approximately 4 cm x 3 cm. None of these extend into the deeper structures. No abscess formation. ASSESSMENT: Stage II/stage III ulcerations right foot as described. Possible cellulitis, however, no discharge was noted from the ulcers. They were dry in nature. No evidence of osteomyelitis, however, due to the patient's pain, redness, elevational pallor and lack of pulses, peripheral artery disease is the most likely cause of her ulcerations with irritation from bandaging or shoe gear. PLAN: Discussed with the patient, utilizing sterile gauze with a stocking net to hold the bandage in place since a wrapped bandage tends to irritate her foot. Encouraged patient not to elevate her foot. Recommend a foot cradle at the foot of the bed since patient's bed covers lying on her foot are painful. We discussed with the patient consultation with vascular for any vascular intervention. She was amenable to this line of treatment and a consult was placed and Corrina Jim was notified. Patient's questions were answered. Thank you for this consultation.
[2019-09-14] MEDS: WARFARIN SOD 2.5 MG TAB PO SCH (18:10)
[2019-09-14] MEDS: LEVOTHYROXINE 50MCG TABLET (0.05MG) PO SCH (20:36)
[2019-09-14] MEDS: ATORVASTATIN 20 MG TAB PO SCH (20:37)
[2019-09-14 22:00] VITALS: BP 136/73
[2019-09-15] MEDS: CEFEPIME HCL 1 GM in D5W MINI-BAG PLUS 50 ML IV SCH ×2 (00:24→12:55)
[2019-09-15] MEDS: ACETAMINOPHEN 500 MG TAB PO SCH ×4 (00:25→18:06)
[2019-09-15] MEDS: traMADol 50 MG TAB PO PRN ×3 (00:26→18:05)
[2019-09-15 06:00] VITALS: BP 145/90
[2019-09-15] MEDS ORDERED: ACETAMINOPH W/CODEINE #3 TAB UD PO PRN (06:07)
--- NOTE | 2019-09-15 07:02 | PHACANCOPD ---
PHARMACY VANCOMYCIN DOSING Pt Demographics Demographics Patient Age:89 , Weight:73.400 , Gender: female Adjusted Body Weight Date: 09/14/19, Adjusted Body Weight: Kg Events Past 24 Hours Events Past 24 Hours: NO: Dialysis, Diuretic Therapy, Change in CrCl, Fever, Elevation in WBC, Pending Diagnostics, Pending Procedures, Other Vancomycin Vancomycin Target Ranges: 15-20 mcg/ml Vancomycin Load Y/N: Yes Load Dose Date Time Vancomycin Load Dose: 1500mg Date: 09-14 Time: 0400 Vancomycin Dose Date: 09/14/19. Current Vancomycin Dose: Intermittent Dosing?: Yes Labs Labs Item Value Date Time White Blood Count 7.9 10^3/uL 09/14/19 0549 Glomerular Filtration Rate 23.6 L 09/14/19 0549 Creatinine 2.11 MG/DL H 09/14/19 0549 Blood Urea Nitrogen 76 MG/DL H 09/14/19 0549 Random Vancomycin Level 16.1 UG/ML 09/15/19 0604 Vital Signs Label Value Date Time Patient Temperature 96.7 degrees F 09/15/19 0600 Temperature Source Temporal 09/15/19 0600 Micro Microbiology 09/13/19 Blood Culture - Preliminary, Resulted No growth after 24 hours . All specim... 09/13/19 Blood Culture - Preliminary, Resulted No growth after 24 hours . All specim... Creatinine Clearance Date:09/14/19. Creatinine Clearance: [~14]. Pending Labs Random 01-05 in am Assessment and Plan Maintaining Current Dose?: Yes Reason for dose change: No Dose Change Pharmacist Note Pharmacist Note Date: 09/15/19. Pharmacist note:random of 16.1 is within target range. Will dose with 1000mg 01-04 @ 0800. Will monitor and dose as needed. [facility] Sep 15, 2019 07:02
[2019-09-15] MEDS ORDERED: VANCOMYCIN HCL 1,000 MG, VIAL MATE ADAPTER 1 EACH in D5W 250 ML IV ONE (08:00)
[2019-09-15] MEDS: DOCUSATE SODIUM 100 MG CAP PO SCH (08:32)
[2019-09-15] MEDS: OMEPRAZOLE 20 MG CAP PO SCH (08:43)
[2019-09-15] MEDS: MULTIVITAMINS/MINERALS THERAP 1 TAB PO SCH (08:43)
[2019-09-15] MEDS: MAGNESIUM OXIDE 400 MG TAB (MAG-OX) PO SCH ×2 (08:43→21:55)
[2019-09-15] MEDS: POTASSIUM CHLORIDE 10 MEQ SR TABLET PO SCH ×2 (08:45→21:55)
[2019-09-15] MEDS: FUROSEMIDE 40 MG TAB PO SCH ×2 (08:45→18:05)
[2019-09-15] MEDS: METOPROLOL SUCC (TopROL XL) 100MG *XL* TAB PO SCH ×2 (08:45→21:55)
[2019-09-15] MEDS: predniSONE 5 MG TAB PO SCH (08:45)
[2019-09-15] MEDS: FEBUXOSTAT 40 MG TABLET (ULORIC) PO SCH (08:46)
[2019-09-15] MEDS: ASPIRIN 81 MG ENTERIC TAB PO SCH (08:46)
[2019-09-15] MEDS: predniSONE 1 MG TAB PO SCH (08:48)
--- NOTE | 2019-09-15 09:17 | REP ---
MRI RIGHT FOOT WITHOUT CONTRAST: HISTORY: Ulcer of the right foot rule out osteomyelitis. Comparison right foot radiographs September 13, 2019. TECHNIQUE: Axial coronal and sagittal imaging planes utilized. T1- and T2-weighted scans were obtained with and without fat saturation. MRI FINDINGS: There is a small subcortical cyst in the proximal end of the first metatarsal at the MTP joint. Cortical and medullary bone signal intensity appear to be normal otherwise throughout the right foot bony structure. There is an accessory navicular ossicle. There is diffuse soft tissue swelling dorsally extending laterally and medially. There is no evidence of soft tissue abscess or osteomyelitis. Plantar calcaneal spurring is noted. I am not able to resolve a definite soft tissue ulcer. IMPRESSION: No evidence of abscess or osteomyelitis. Electronically Signed by Karl Brice MD 09/15/2019 09:32 A
[2019-09-15 14:00] VITALS: BP 139/86
--- NOTE | 2019-09-15 15:47 | IPNPDOC ---
Text Note Date of Service The patient was seen on 09/15/19. NOTE Subjective: Patient complains on mild right foot pain. Patient denies fever, chills, nausea, vomiting, shortness of breath, diarrhea or dysuria Objective: GEN: well-nourished / well developed/ NAD INTEGUMENT: The lower aspect of the right foot is red and swollen. There is a 3 cm x 2 cm ulcer that is draining serous fluid at the lateral aspect of the right hallux HEENT: NCAT CVS: S1-S2 LUNGS: CTA ABDOMEN: the abdomen is soft & not tender with palpation MSK/EXTREMITIES: range of motion intact in all 4 extremities NEURO: CN 2-12 are grossly intact / speech is not dysarthric PSYCH: alert and oriented to person place and time/ able to understand and follow all commands MRI RIGHT FOOT WITHOUT CONTRAST: HISTORY: Ulcer of the right foot rule out osteomyelitis. Comparison right foot radiographs September 13, 2019. TECHNIQUE: Axial coronal and sagittal imaging planes utilized. T1- and T2-weighted scans were obtained with and without fat saturation. MRI FINDINGS: There is a small subcortical cyst in the proximal end of the first metatarsal at the MTP joint. Cortical and medullary bone signal intensity appear to be normal otherwise throughout the right foot bony structure. There is an accessory navicular ossicle. There is diffuse soft tissue swelling dorsally extending laterally and medially. There is no evidence of soft tissue abscess or osteomyelitis. Plantar calcaneal spurring is noted. I am not able to resolve a definite soft tissue ulcer. IMPRESSION: No evidence of abscess or osteomyelitis. Patient is an 89-year-old female with past medical history of HTN, diastolic CHF, atrial fibrillation, chronic CAD, OA, gout, CKD 4, prediabetes, and unsteady gait who is admitted for management of a right toe ulcer. 1. Right toe ulcer Patient has leukocytosis with elevated ESR and CRP However MRI negative for osteomyelitis Per seo manager evaluation peripheral artery disease is the most likely cause of her ulcerations with irritation from bandaging or shoe gear. Encouraged patient not to elevate her foot. Recommend a foot cradle at the foot of the bed since patient's bed covers lying on her foot are painful. Vascular surgeon consult in the outpatient settings Pain management Due to cellulitis I will continue antibiotic therapy. Ceftaroline Iv 2. Chronic hypertension / chronic diastolic CHF Continue home cardioprotective medications 3. Atrial fibrillation Continue home cardioprotective medications Heart rate is under control 4. Chronic CAD Patient denies any chest pain status post stents Continue aspirin, atorvastatin, metoprolol, nitroglycerin 5. 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 CKD 4 Continue to monitor 7. Hypothyroidism. Continue levothyroxine 8. Gout Continue Febuxostat 9. GERD Continue omeprazole 10 Obesity Her BMI is 31.3 Monogram And Letter Paster consult in the outpatient settings VS,Alee, I+O VS, Alee, I+O Vital Signs Date Time Temp Pulse Resp B/P (MAP) Pulse Ox O2 Delivery O2 Flow Rate FiO2 09/15/19 14:00 97.5 120 17 139/86 (103) 99 Room Air I&O- Last 24 Hours up to 6 AM 09/15/19 05:59 Intake Total 1210 ml Output Total 0 ml Balance 1210 ml GA COLVIN DO Sep 15, 2019 15:47
[2019-09-15] MEDS: WARFARIN SOD 2.5 MG TAB PO SCH (18:04)
[2019-09-15] MEDS: CEFTAROLINE FOSAMIL 200 MG in D5W 50 ML IV SCH (18:04)
[2019-09-15] MEDS: LEVOTHYROXINE 50MCG TABLET (0.05MG) PO SCH (21:54)
[2019-09-15] MEDS: ATORVASTATIN 20 MG TAB PO SCH (21:54)
[2019-09-15 22:00] VITALS: BP 132/65
[2019-09-16] MEDS: ACETAMINOPHEN 500 MG TAB PO SCH ×4 (00:42→17:10)
[2019-09-16] MEDS: traMADol 50 MG TAB PO PRN ×2 (00:42→06:43)
[2019-09-16] MEDS: CEFTAROLINE FOSAMIL 200 MG in D5W 50 ML IV SCH ×2 (05:49→17:11)
[2019-09-16 06:00] VITALS: BP 131/88
[2019-09-16] MEDS: MULTIVITAMINS/MINERALS THERAP 1 TAB PO SCH (08:46)
[2019-09-16] MEDS: ASPIRIN 81 MG ENTERIC TAB PO SCH (08:47)
[2019-09-16] MEDS: FEBUXOSTAT 40 MG TABLET (ULORIC) PO SCH (08:47)
[2019-09-16] MEDS: predniSONE 5 MG TAB PO SCH (08:47)
[2019-09-16] MEDS: METOPROLOL SUCC (TopROL XL) 100MG *XL* TAB PO SCH ×2 (08:47→21:07)
[2019-09-16] MEDS: FUROSEMIDE 40 MG TAB PO SCH ×2 (08:48→17:10)
[2019-09-16] MEDS: POTASSIUM CHLORIDE 10 MEQ SR TABLET PO SCH ×2 (08:48→21:05)
[2019-09-16] MEDS: predniSONE 1 MG TAB PO SCH (08:48)
[2019-09-16] MEDS: MAGNESIUM OXIDE 400 MG TAB (MAG-OX) PO SCH ×2 (08:48→21:06)
[2019-09-16] MEDS: OMEPRAZOLE 20 MG CAP PO SCH (08:48)
--- NOTE | 2019-09-16 11:29 | IPNPDOC ---
Text Note Date of Service The patient was seen on 09/16/19. NOTE Subjective: Patient complains on mild right foot pain. Patient also stated that she has been having dizziness and mild confusion Patient denies fever, chills, nausea, vomiting, shortness of breath, diarrhea or dysuria Objective: GEN: well-nourished / well developed/ NAD INTEGUMENT: The lower aspect of the right foot is red and swollen. There is a 3 cm x 2 cm ulcer that is draining serous fluid at the lateral aspect of the right hallux HEENT: NCAT CVS: S1-S2 LUNGS: CTA ABDOMEN: the abdomen is soft & not tender with palpation MSK/EXTREMITIES: range of motion intact in all 4 extremities NEURO: CN 2-12 are grossly intact / speech is not dysarthric PSYCH: alert and oriented to person place and time/ able to understand and follow all commands Patient is an 89-year-old female with past medical history of HTN, diastolic CHF, atrial fibrillation, chronic CAD, OA, gout, CKD 4, prediabetes, and unsteady gait who is admitted for management of a right toe ulcer. 1. Right toe ulcer/ cellulitis of right foot Patient has leukocytosis with elevated ESR and CRP However MRI negative for osteomyelitis Per brush painter evaluation peripheral artery disease is the most likely cause of her ulcerations with irritation from bandaging or shoe gear. Encouraged patient not to elevate her foot. Recommend a foot cradle at the foot of the bed since patient's bed covers lying on her foot are painful. Vascular surgeon consult in the outpatient settings Pain management. Due to mild confusion in the morning I will hold tramadol Due to cellulitis I will continue antibiotic therapy. Cellulitis significantly improved today Continue with Ceftaroline Iv PT/OT evaluation 2. Chronic hypertension / chronic diastolic CHF Continue home cardioprotective medications 3. Atrial fibrillation Continue home cardioprotective medications Heart rate is under control 4. Chronic CAD Patient denies any chest pain status post stents Continue aspirin, atorvastatin, metoprolol, nitroglycerin 5. 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 CKD 4 Continue to monitor 7. Hypothyroidism. Continue levothyroxine 8. Gout Continue Febuxostat 9. GERD Continue omeprazole 10 Obesity Her BMI is 31.3 Strategic Communications Manager consult in the outpatient settings VS,Fishbone, I+O VS, Fishbone, I+O Vital Signs Date Time Temp Pulse Resp B/P (MAP) Pulse Ox O2 Delivery O2 Flow Rate FiO2 09/16/19 08:47 104 106/44 09/16/19 07:13 16 Room Air 09/16/19 06:00 97.2 95 I&O- Last 24 Hours up to 6 AM 09/16/19 06:00 Intake Total 1490 ml Balance 1490 ml GA COLVIN DO Sep 16, 2019 11:29
[2019-09-16 14:00] VITALS: BP 142/54
[2019-09-16] MEDS: WARFARIN SOD 2.5 MG TAB PO SCH (17:10)
[2019-09-16] MEDS: LEVOTHYROXINE 50MCG TABLET (0.05MG) PO SCH (21:05)
[2019-09-16] MEDS: ATORVASTATIN 20 MG TAB PO SCH (21:06)
[2019-09-16 22:00] VITALS: BP 118/64
[2019-09-17] MEDS: ACETAMINOPHEN 500 MG TAB PO SCH ×3 (00:05→11:16)
[2019-09-17] MEDS: traMADol 50 MG TAB PO PRN (00:48)
[2019-09-17] MEDS: CEFTAROLINE FOSAMIL 200 MG in D5W 50 ML IV SCH ×2 (05:16→17:08)
[2019-09-17 06:00] VITALS: BP 142/83
[2019-09-17 08:39] LABS: HEMATOCRIT 32.8 % (36.0-47.0); HEMOGLOBIN 10.3 g/dl (12.0-15.5); MEAN CORPUSCULAR HEMOGLOBIN 33.4 pg (27.0-33.0); MEAN CORPUSCULAR HGB CONC 31.4 g/dl (32.0-36.5); MEAN CORPUSCULAR VOLUME 106.5 fl (80.0-96.0); PLATELET COUNT, AUTOMATED 214 10^3/uL (150-450); RED BLOOD COUNT 3.08 10^6/uL (4.00-5.40); WHITE BLOOD COUNT 9.3 10^3/uL (4.0-10.0)
[2019-09-17] MEDS: METOPROLOL SUCC (TopROL XL) 100MG *XL* TAB PO SCH (09:00)
[2019-09-17] MEDS: MAGNESIUM OXIDE 400 MG TAB (MAG-OX) PO SCH ×3 (09:00→21:03)
[2019-09-17 09:08] LABS: CREATININE FOR GFR 2.34 MG/DL (0.55-1.30); GLOMERULAR FILTRATION RATE 20.9 (>32); MAGNESIUM LEVEL 2.9 MG/DL (1.8-2.4)
[2019-09-17] MEDS: OMEPRAZOLE 20 MG CAP PO SCH (09:09)
[2019-09-17] MEDS: FUROSEMIDE 40 MG TAB PO SCH ×2 (09:09→16:15)
[2019-09-17] MEDS: ASPIRIN 81 MG ENTERIC TAB PO SCH (09:10)
[2019-09-17] MEDS: predniSONE 5 MG TAB PO SCH (09:10)
[2019-09-17] MEDS: POTASSIUM CHLORIDE 10 MEQ SR TABLET PO SCH ×2 (09:10→21:03)
[2019-09-17] MEDS: predniSONE 1 MG TAB PO SCH (09:10)
[2019-09-17] MEDS: FEBUXOSTAT 40 MG TABLET (ULORIC) PO SCH (09:10)
[2019-09-17] MEDS: MULTIVITAMINS/MINERALS THERAP 1 TAB PO SCH (09:10)
[2019-09-17 10:39] LABS: INR 2.48; PROTHROMBIN TIME 26.7 SECONDS (11.8-14.0)
[2019-09-17] MEDS ORDERED: traMADol 50 MG TAB PO PRN ×2 (12:15→14:00)
--- NOTE | 2019-09-17 12:34 | CR.PDOC ---
General Date of Consultation: Sep 17, [address] Steiner. HPI: 89 year old with history of increasing right foot pain. The patient was admitted with right toe ulcer and vascular surgery is consulted. Patient is being followed by podiatry for wound management. Denies any Headache, Chest Pain, Shortness of breath, cough, palpitations, abdominal pain, N/V/D or changes in bowel or bladder habits. PAST MEDICAL/ SURGICAL HISTORY: Chronic hypertension / chronic diastolic congestive heart failure Atrial fibrillation Chronic CAD status post stents OA Gout CKD 4 Prediabetes Status post TAVR Osteoporosis on Prolia Hypothyroidism GERD Unsteady gait, uses walker Status post hysterectomy Status post cholecystectomy Nephrolithiasis status post lithotripsy Status post left total knee arthropathy Status post lung biopsy Status post bilateral carpal tunnel surgery SOCIAL HISTORY: She does not smoke FAMILY HISTORY: Lung cancer Coronary artery disease ROS: As noted in HPI, otherwise 11pt ROS of systems reviewed and unremarkable. PE: GEN: 89yo[F, appears stated age. No acute distress. Alert and oriented x 3. HEENT: Normocephalic, atraumatic. Moist mucous membranes. CHEST: Regular rate and rhythm, +S1, +S2 LUNGS: Clear to auscultation bilaterally. No wheezes, rales, or rhonchi. ABD: Round, soft, non-tender, non-distended. +Bowel sounds throughout. EXT: The right foot is bandaged. There is a wound at the medial aspect of the right great toe as well as at the dorsal aspect of the foot at the base of the second third and fourth toes. Exam is limited related to the dressing. Pedal pulses are nonpalpable. Monophasic pulses are obtained with Doppler bilaterally. NEURO: Alert and oriented x 3. Cranial nerves III-XII are intact. No focal deficits appreciated. Bilateral lower extremity arterial Doppler ultrasound: History: Right foot ulcer and pain. Findings: Ankle brachial indices could not be accomplished on either side due to noncompressible vessels. Advanced hip vascular calcification is seen throughout the lower extremity arteries bilaterally. There is evidence of a mild stenosis in the proximal superficial femoral artery on the right. The left superficial femoral artery is less than optimally seen. No high-grade stenosis or occlusion is identified. Triphasic and biphasic Doppler waveforms are noted bilaterally. Right lower extremity arterial Doppler velocity chart: CF A eighth 36 cm/S Profunda 35 Proximal SFA 37/85/36 Mid SFA 35 Distal SFA 21 Popliteal 22 Proximal AT A 31 Tibioperoneal trunk 22 Proximal ESTATE PLANNER 15 Distal ESTATE PLANNER 20 Distal AT A 11 Left lower extremity arterial Doppler velocity chart: CF A 39 cm/S Profunda 22 Proximal SFA 31 Mid SFA 35 Distal SFA 21 Popliteal 29 Proximal AT A 21 Tibioperoneal trunk 25 Proximal ESTATE PLANNER not seen Distal ESTATE PLANNER 19 Distal AT A 32 Electronically Signed by Karl Brice MD 09/14/2019 03:02 P MRI right foot. Negative for osteomyelitis. A&P: 1. Right foot ulcer/right foot cellulitis/PAD. Continue with pain control and antibiotics as per medicine service. Continue with wound care as per podiatry. Bilateral lower extremity arterial ultrasound is reviewed by Dr. Steiner. The patient is noted to have stage IV chronic kidney disease with GFR of 20. At this time, would not recommend vascular intervention, recommended conservative management. Continued wound care. Thank you for your consultation. We will continue to follow along with you. Vital Signs/I&O Vital Signs Date Time Temp Pulse Resp B/P (MAP) Pulse Ox O2 Delivery O2 Flow Rate FiO2 09/17/19 06:00 97.5 114 20 142/83 (102) 92 Room Air I&O- Last 24 Hours up to 6 AM 09/17/19 05:59 Intake Total 540 ml Output Total 0 ml Balance 540 ml Laboratory Data Microbiology Microbiology 09/13/19 Blood Culture - Preliminary, Resulted No Growth after 72 hours. All specime... 09/13/19 Blood Culture - Preliminary, Resulted No Growth after 72 hours. All specime... Allergies Coded Allergies: adhesive tape (Verified Allergy, Mild, Itching, blisters, also bandaids, 01/08/19) pravastatin (Verified Allergy, Mild, ITCHY, 09/14/19) Sulfa (Sulfonamide Antibiotics) (Verified Allergy, Unknown, 01/08/19) latex (Verified Allergy, Unknown, Sensitivity, 01/08/19) ciprofloxacin (Verified Adverse Reaction, Intermediate, Decreased kidney function, 01/08/19) Home Medications Scheduled Acetaminophen (Acetaminophen) 500 Mg Tablet, 500 MG PO Q6H, (Reported) Aspirin (Aspirin EC) 81 Mg Tablet.dr, 81 MG PO DAILY, (Reported) Atorvastatin Calcium (Atorvastatin Calcium) 40 Mg Tablet, 40 MG PO QHS, (Reported) Cranberry Fruit Extract (Cranberry) 500 Mg Capsule, 500 MG PO BID, (Reported) Denosumab Injection (Prolia) 60 Mg/Ml Kierra, 60 MG SC ASDIRECTED, (Reported) EVERY 6 MONTHS: LAST DOSE SOMETIME IN JUNE Epoetin Umair (Procrit) 10,000 Unit/Ml Inj, 10,000 UNIT SC ASDIRECTED, (Reported) Febuxostat (Uloric) 40 Mg Tablet, 40 MG PO DAILY, (Reported) Furosemide (Furosemide) 40 Mg Tablet, 40 MG PO BID, (Reported) Levothyroxine Sodium (Synthroid) 50 Mcg Tablet, 50 MCG PO QHS, (Reported) Magnesium Oxide (Magnesium Oxide) 400 Mg Tablet, 400 MG PO BID, (Reported) Methenamine Hippurate (Methenamine Hippurate) 1 Gm Tab, 1 GM PO DAILY, (Reported) Metoprolol Succinate (Metoprolol Succinate) 100 Mg Tab.er.24h, 50 MG PO DAILY, (Reported) Metoprolol Succinate (Metoprolol Succinate) 100 Mg Tab.er.24h, 100 MG PO QHS, (Reported) Multivitamins (Thera M Plus Tablet) 1 Each Tablet, 1 TAB PO DAILY, (Reported) [place]-3 Fatty Acids/Fish Oil (Fish Oil 1,000 mg Capsule) 1 Each Capsule, 1,000 MG PO DAILY, (Reported) Omeprazole (Omeprazole) 20 Mg Capsule.dr, 20 MG PO DAILY, (Reported) Potassium Chloride (Potassium Chloride) 10 Meq Tab.er.prt, 10 MEQ PO BID, (Reported) Prednisone (Prednisone) 1 Mg Tab, 2 MG PO DAILY, (Reported) TAKES WITH 5MG FOR 7MG TOTAL Prednisone (Prednisone) 10 Mg Tablet, 5 MG PO DAILY, (Reported) TAKES WITH 2MG FOR 7MG TOTAL Vit A/Vit C/Vit E/Zinc/Copper (Icaps Areds Softgel) 1 Each Capsule, 1 CAP PO BID, (Reported) Warfarin Sodium (Warfarin Sodium) 2.5 Mg Tablet, 2.5 MG PO QPM, (Reported) TAKES AROUND 1700 Scheduled PRN Acetaminophen with Codeine (Tylenol with Codeine #3 Tablet) 1 Each Tablet, 1 TAB PO TID PRN for PAIN, (Reported) Nitroglycerin (Nitroglycerin) 0.4 Mg Sub, 0.4 MG SL NITRO PRN for CHEST PAIN, (Reported) Tramadol HCl (Tramadol HCl) 50 Mg Tablet, 50 MG PO Q6H PRN for PAIN, (Reported) Corrina Jim Sep 17, 2019 08:35
[2019-09-17 14:00] VITALS: BP 146/88
--- NOTE | 2019-09-17 14:18 | IPNPDOC ---
Text Note Date of Service The patient was seen on 09/17/19. NOTE Subjective: Patient complains on moderate right foot pain. Patient denies fev er, chills, nausea, vomiting, shortness of breath, diarrhea or dysuria Objective: GEN: well-nourished / well developed/ NAD INTEGUMENT: The lower aspect of the right foot is red and swollen. There is a 3 cm x 2 cm ulcer that is draining serous fluid at the lateral aspect of the right hallux HEENT: NCAT CVS: S1-S2 LUNGS: CTA ABDOMEN: the abdomen is soft & not tender with palpation MSK/EXTREMITIES: range of motion intact in all 4 extremities NEURO: CN 2-12 are grossly intact / speech is not dysarthric PSYCH: alert and oriented to person place and time/ able to understand and follow all commands Patient is an 89-year-old female with past medical history of HTN, diastolic CHF, atrial fibrillation, chronic CAD, OA, gout, CKD 4, prediabetes, and unsteady gait who is admitted for management of a right toe ulcer. 1. Right toe ulcer/ cellulitis of right foot Patient has leukocytosis with elevated ESR and CRP However MRI negative for osteomyelitis Per synthetic filament extruder evaluation peripheral artery disease is the most likely cause of her ulcerations with irritation from bandaging or shoe gear. Encouraged patient not to elevate her foot. Recommend a foot cradle at the foot of the bed since patient's bed covers lying on her foot are painful. Vascular surgeon recommended conservative treatment Pain management with tramadol Due to cellulitis I will continue antibiotic therapy. Cellulitis significantly improved today Continue with Ceftaroline Iv PT/OT treatment and evaluation 2. Chronic hypertension / chronic diastolic CHF Continue home cardioprotective medications 3. Atrial fibrillation Continue home cardioprotective medications 4. Chronic CAD Patient denies any chest pain status post stents Continue aspirin, atorvastatin, metoprolol, nitroglycerin 5. 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 CKD 4 Continue to monitor 7. Hypothyroidism. Continue levothyroxine 8. Gout Continue Febuxostat 9. GERD Continue omeprazole 10 Obesity Her BMI is 31.3 Cigarette Examiner consult in the outpatient settings VS,Fishbone, I+O VS, Fishbone, I+O Laboratory Tests 09/17/19 08:13 Vital Signs Date Time Temp Pulse Resp B/P (MAP) Pulse Ox O2 Delivery O2 Flow Rate FiO2 09/17/19 09:00 105 91/67 09/17/19 06:00 97.5 20 92 Room Air I&O- Last 24 Hours up to 6 AM 09/17/19 06:00 Intake Total 240 ml Output Total 0 ml Balance 240 ml GA COLVIN DO Sep 17, 2019 14:18
[2019-09-17] MEDS: METOPROLOL TART 50 MG TAB PO SCH ×2 (14:24→21:04)
[2019-09-17] MEDS: WARFARIN SOD 2.5 MG TAB PO SCH (16:16)
[2019-09-17] MEDS ORDERED: METOPROLOL SUCC (TopROL XL) 50MG **XL** TAB PO SCH (21:00)
[2019-09-17] MEDS: LEVOTHYROXINE 50MCG TABLET (0.05MG) PO SCH (21:03)
[2019-09-17] MEDS: ATORVASTATIN 20 MG TAB PO SCH (21:03)
[2019-09-17 22:00] VITALS: BP 120/66
[2019-09-18] MEDS: ACETAMINOPHEN TAB 650MG DOSE (2X325MG) PO PRN ×2 (04:15→13:57)
[2019-09-18] MEDS: METOPROLOL TART 50 MG TAB PO SCH ×3 (05:10→21:34)
[2019-09-18] MEDS: CEFTAROLINE FOSAMIL 200 MG in D5W 50 ML IV SCH ×2 (05:11→17:00)
[2019-09-18 06:00] VITALS: BP 123/73
[2019-09-18] MEDS: POTASSIUM CHLORIDE 10 MEQ SR TABLET PO SCH ×3 (09:00→21:34)
[2019-09-18] MEDS: predniSONE 5 MG TAB PO SCH (09:38)
[2019-09-18] MEDS: MAGNESIUM OXIDE 400 MG TAB (MAG-OX) PO SCH ×2 (09:38→21:33)
[2019-09-18] MEDS: MULTIVITAMINS/MINERALS THERAP 1 TAB PO SCH (09:38)
[2019-09-18] MEDS: OMEPRAZOLE 20 MG CAP PO SCH (09:38)
[2019-09-18] MEDS: ASPIRIN 81 MG ENTERIC TAB PO SCH (09:38)
[2019-09-18] MEDS: predniSONE 1 MG TAB PO SCH (09:38)
[2019-09-18] MEDS: FUROSEMIDE 40 MG TAB PO SCH ×2 (09:38→17:01)
[2019-09-18] MEDS: FEBUXOSTAT 40 MG TABLET (ULORIC) PO SCH (09:38)
[2019-09-18 14:00] VITALS: BP_SYST 118; BP_SYST 139; BP_DIAS 60; BP_DIAS 79
--- NOTE | 2019-09-18 14:56 | IPNPDOC ---
Text Note Date of Service The patient was seen on 09/18/19. NOTE Subjective: No any acute events overnight. Patient denies fever, chills, nausea, vomiting, shortness of breath, diarrhea or dysuria Objective: GEN: well-nourished / well developed/ NAD INTEGUMENT: The lower aspect of the right foot is red and swollen. There is a 3 cm x 2 cm ulcer that is draining serous fluid at the lateral aspect of the right hallux HEENT: NCAT CVS: S1-S2 LUNGS: CTA ABDOMEN: the abdomen is soft & not tender with palpation MSK/EXTREMITIES: range of motion intact in all 4 extremities NEURO: CN 2-12 are grossly intact / speech is not dysarthric PSYCH: alert and oriented to person place and time/ able to understand and follow all commands Patient is an 89-year-old female with past medical history of HTN, diastolic CHF, atrial fibrillation, chronic CAD, OA, gout, CKD 4, prediabetes, and unsteady gait who is admitted for management of a right toe ulcer. 1. Right toe ulcer/ cellulitis of right foot Patient has leukocytosis with elevated ESR and CRP However MRI negative for osteomyelitis Per dairy products maker evaluation peripheral artery disease is the most likely cause of her ulcerations with irritation from bandaging or shoe gear. Encouraged patient not to elevate her foot. Recommend a foot cradle at the foot of the bed since patient's bed covers lying on her foot are painful. Vascular surgeon recommended conservative treatment Pain management with tramadol Due to cellulitis I will continue antibiotic therapy. Cellulitis continues improving Continue with Ceftaroline Iv PT/OT 2. Chronic hypertension / chronic diastolic CHF Continue home cardioprotective medications 3. Atrial fibrillation Continue home cardioprotective medications 4. Chronic CAD Patient denies any chest pain status post stents Continue aspirin, atorvastatin, metoprolol, nitroglycerin 5. Status post TAVR Monitor INR Continue warfarin 6. CKD 4 Continue to monitor 7. Hypothyroidism. Continue levothyroxine 8. Gout Continue Febuxostat 9. GERD Continue omeprazole 10 Obesity Her BMI is 31.3 Import/Export Specialist consult in the outpatient settings VS,Fishbone, I+O VS, Fishbone, I+O Vital Signs Date Time Temp Pulse Resp B/P (MAP) Pulse Ox O2 Delivery O2 Flow Rate FiO2 09/18/19 13:05 96 122/78 09/18/19 06:00 97.1 16 92 Room Air I&O- Last 24 Hours up to 6 AM 09/18/19 06:00 Intake Total 1120 ml Output Total 650 ml Balance 470 ml GA COLVIN DO Sep 18, 2019 14:56
[2019-09-18] MEDS: WARFARIN SOD 2.5 MG TAB PO SCH (17:01)
[2019-09-18] MEDS: ATORVASTATIN 20 MG TAB PO SCH (21:33)
[2019-09-18] MEDS: LEVOTHYROXINE 50MCG TABLET (0.05MG) PO SCH (21:33)
[2019-09-18 22:00] VITALS: BP 146/65
[2019-09-19 05:26] VITALS: BP 132/77
[2019-09-19] MEDS: CEFTAROLINE FOSAMIL 200 MG in D5W 50 ML IV SCH (05:26)
[2019-09-19] MEDS: METOPROLOL TART 50 MG TAB PO SCH (05:26)
[2019-09-19] MEDS: ACETAMINOPHEN TAB 650MG DOSE (2X325MG) PO PRN (05:49)
[2019-09-19 06:00] VITALS: BP 139/64
[2019-09-19 06:17] LABS: BASO % 0.3 % (0.0-1.0); EOS # 0.2 10^3/uL (0.0-0.5); EOS % 1.9 % (0.0-3.0); HEMATOCRIT 32.2 % (36.0-47.0); HEMOGLOBIN 10.6 g/dl (12.0-15.5); LYMPH # 0.8 10^3/uL (1.5-5.0); LYMPH % 7.2 % (24.0-44.0); MEAN CORPUSCULAR HEMOGLOBIN 34.3 pg (27.0-33.0); MEAN CORPUSCULAR HGB CONC 32.9 g/dl (32.0-36.5); MEAN CORPUSCULAR VOLUME 104.2 fl (80.0-96.0); MONO # 0.9 10^3/uL (0.0-0.8); MONO % 8.2 % (0.0-5.0); NEUTROPHILS # 8.7 10^3/uL (1.5-8.5); NEUTROPHILS % 81.7 % (36.0-66.0); PLATELET COUNT, AUTOMATED 246 10^3/uL (150-450); RED BLOOD COUNT 3.09 10^6/uL (4.00-5.40); WHITE BLOOD COUNT 10.6 10^3/uL (4.0-10.0)
[2019-09-19 06:39] LABS: CALCIUM LEVEL 9.2 MG/DL (8.8-10.2); CREATININE FOR GFR 2.5 MG/DL (0.55-1.30); GLOMERULAR FILTRATION RATE 19.4 (>32); MAGNESIUM LEVEL 2.7 MG/DL (1.8-2.4); POTASSIUM SERUM 4.2 MEQ/L (3.5-5.1)
[2019-09-19] MEDS: ASPIRIN 81 MG ENTERIC TAB PO SCH (08:36)
[2019-09-19] MEDS: OMEPRAZOLE 20 MG CAP PO SCH (08:36)
[2019-09-19] MEDS: predniSONE 5 MG TAB PO SCH (08:36)
[2019-09-19] MEDS: MULTIVITAMINS/MINERALS THERAP 1 TAB PO SCH (08:36)
[2019-09-19] MEDS: FEBUXOSTAT 40 MG TABLET (ULORIC) PO SCH (08:36)
[2019-09-19] MEDS: POTASSIUM CHLORIDE 10 MEQ SR TABLET PO SCH (08:36)
[2019-09-19] MEDS: FUROSEMIDE 40 MG TAB PO SCH (08:37)
[2019-09-19] MEDS: MAGNESIUM OXIDE 400 MG TAB (MAG-OX) PO SCH (08:37)
[2019-09-19] MEDS: predniSONE 1 MG TAB PO SCH (08:37)
[2019-09-19] MEDS ORDERED: DOXY-350 PO (11:51)
--- NOTE | 2019-09-19 14:20 | DS.PDOC ---
Discharge Summary General Date of Admission Sep 13, 2019 at 22:56 Date of Discharge 09/19/19 Discharge Summary PROCEDURES PERFORMED DURING STAY: None ADMITTING DIAGNOSES: Right toe ulcer/ cellulitis of right foot Chronic hypertension / chronic diastolic CHF Atrial fibrillation Chronic CAD Status post TAVR CKD 4 Hypothyroidism Gout GERD Obesity DISCHARGE DIAGNOSES: Right toe ulcer/ cellulitis of right foot Chronic hypertension / chronic diastolic CHF Atrial fibrillation Chronic CAD Status post TAVR CKD 4 Hypothyroidism Gout GERD Obesity COMPLICATIONS/CHIEF COMPLAINT: Foot Ulcer. HISTORY OF PRESENT ILLNESS: This is an 89-year-old female who presents to hospital with complaints of right foot pain since May. She reports that this all started with an ingrown toenail that was clipped off and "shaving" of some skin on the lateral aspect of her toe. Thereafter, she developed infection of the skin affecting toe which has spread to the foot. Since Tuesday she has developed worsening redness, pain and swelling of the right foot, therefore, she decided come to the hospital for evaluation today. Per discussion with the ER provider, pulses were faint but palpable by Doppler; ESR and CRP were elevated; report from x-ray of the foot is pending. Dr. Mora was consulted and recommended MRI of the foot. HOSPITAL COURSE: During hospital stay the following issues addressed 1. Right toe ulcer/ cellulitis of right foot Patient has leukocytosis with elevated ESR and CRP However MRI negative for osteomyelitis Per dragline oiler evaluation peripheral artery disease is the most likely cause of her ulcerations with irritation from bandaging or shoe gear. Encouraged patient not to elevate her foot. Recommend a foot cradle at the foot of the bed since patient's bed covers lying on her foot are painful. Vascular surgeon recommended conservative treatment Pain management with tramadol Due to cellulitis patient received antibiotic therapy. Cellulitis continues improving PT/OT 2. Chronic hypertension / chronic diastolic CHF Continue home cardioprotective medications 3. Atrial fibrillation Continue home cardioprotective medications 4. Chronic CAD Patient denies any chest pain status post stents Continue aspirin, atorvastatin, metoprolol, nitroglycerin 5. Status post TAVR Monitor INR Continue warfarin 6. CKD 4 Continue to monitor 7. Hypothyroidism. Continue levothyroxine 8. Gout Continue Febuxostat 9. GERD Continue omeprazole 10 Obesity Her BMI is 31.3 Manager Paid consult in the outpatient settings DISCHARGE MEDICATIONS: Please see below. ALLERGIES: Please see below. PHYSICAL EXAMINATION ON DISCHARGE: VITAL SIGNS: Please see below. GEN: well-nourished, well developed, NAD INTEGUMENT: The lower aspect of the right foot is red and swollen. There is a 3 cm x 2 cm ulcer at the lateral aspect of the right hallux HEENT: NCAT CVS: S1-S2 LUNGS: CTA ABDOMEN: the abdomen is soft & not tender with palpation MSK/EXTREMITIES: range of motion intact in all 4 extremities NEURO: CN 2-12 are grossly intact / speech is not dysarthric PSYCH: alert and oriented to person place and time/ able to understand and follow all commands LABORATORY DATA: Please see below. IMAGING:MRI RIGHT FOOT WITHOUT CONTRAST: HISTORY: Ulcer of the right foot rule out osteomyelitis. Comparison right foot radiographs September 13, 2019. TECHNIQUE: Axial coronal and sagittal imaging planes utilized. T1- and T2-weighted scans were obtained with and without fat saturation. MRI FINDINGS: There is a small subcortical cyst in the proximal end of the first metatarsal at the MTP joint. Cortical and medullary bone signal intensity appear to be normal otherwise throughout the right foot bony structure. There is an accessory navicular ossicle. There is diffuse soft tissue swelling dorsally extending laterally and medially. There is no evidence of soft tissue abscess or osteomyelitis. Plantar calcaneal spurring is noted. I am not able to resolve a definite soft tissue ulcer. IMPRESSION: No evidence of abscess or osteomyelitis. PROGNOSIS: Favorable ACTIVITY: [As tolerated]. DIET: Cardiac DISPOSITION: [facility] Keep Home. DISCHARGE INSTRUCTIONS: 1. Do not elevate the foot ITEMS TO FOLLOWUP ON ON OUTPATIENT: clinical informatics specialist and PCP DISCHARGE CONDITION: Stable TIME SPENT ON DISCHARGE: Greater than minutes. Vital Signs/I&Os Vital Signs Date Time Temp Pulse Resp B/P (MAP) Pulse Ox O2 Delivery O2 Flow Rate FiO2 09/19/19 06:00 96.5 115 17 139/64 (89) 94 NIPPV (BIPAP/CPAP) I&O- Last 24 Hours up to 6 AM 09/19/19 06:00 Intake Total 1520 ml Output Total 200 ml Balance 1320 ml Laboratory Data Labs 24H Laboratory Tests 2 09/19/19 05:54: Immature Granulocyte % (Auto) 0.7, Neutrophils (%) (Auto) 81.7H, Lymphocytes (%) (Auto) 7.2L, Monocytes (%) (Auto) 8.2H, Eosinophils (%) (Auto) 1.9, Basophils (%) (Auto) 0.3, Neutrophils # (Auto) 8.7H, Lymphocytes # (Auto) 0.8L, Monocytes # (Auto) 0.9H, Eosinophils # (Auto) 0.2, Basophils # (Auto) 0.0, Nucleated Red Blood Cells % (auto) 0.0, Anion Gap 10, Glomerular Filtration Rate 19.4L, Calcium Level 9.2, Magnesium Level 2.7H CBC/BMP Laboratory Tests 09/19/19 05:54 Microbiology Microbiology 09/13/19 Blood Culture - Final, Complete NO GROWTH AFTER 5 DAYS 09/13/19 Blood Culture - Final, Complete NO GROWTH AFTER 5 DAYS Discharge Medications Scheduled Acetaminophen (Acetaminophen) 500 Mg Tablet, 500 MG PO Q6H, (Reported) Aspirin (Aspirin EC) 81 Mg Tablet.dr, 81 MG PO DAILY, (Reported) Atorvastatin Calcium (Atorvastatin Calcium) 40 Mg Tablet, 40 MG PO QHS, (Reported) Cranberry Fruit Extract (Cranberry) 500 Mg Capsule, 500 MG PO BID, (Reported) Denosumab Injection (Prolia) 60 Mg/Ml Kierra, 60 MG SC ASDIRECTED, (Reported) EVERY 6 MONTHS: LAST DOSE SOMETIME IN JUNE Doxycycline Monohydrate (Doxycycline) 100 Mg Capsule, 1 CAP PO BID Epoetin Umari (Procrit) 10,000 Unit/Ml Inj, 10,000 UNIT SC ASDIRECTED, (Reported) Febuxostat (Uloric) 40 Mg Tablet, 40 MG PO DAILY, (Reported) Furosemide (Furosemide) 40 Mg Tablet, 40 MG PO BID, (Reported) Levothyroxine Sodium (Synthroid) 50 Mcg Tablet, 50 MCG PO QHS, (Reported) Magnesium Oxide (Magnesium Oxide) 400 Mg Tablet, 400 MG PO BID, (Reported) Methenamine Hippurate (Methenamine Hippurate) 1 Gm Tab, 1 GM PO DAILY, (Reported) Metoprolol Succinate (Metoprolol Succinate) 100 Mg Tab.er.24h, 50 MG PO DAILY, (Reported) Metoprolol Succinate (Metoprolol Succinate) 100 Mg Tab.er.24h, 100 MG PO QHS, (Reported) Multivitamins (Thera M Plus Tablet) 1 Each Tablet, 1 TAB PO DAILY, (Reported) Concord-3 Fatty Acids/Fish Oil (Fish Oil 1,000 mg Capsule) 1 Each Capsule, 1,000 MG PO DAILY, (Reported) Omeprazole (Omeprazole) 20 Mg Capsule.dr, 20 MG PO DAILY, (Reported) Potassium Chloride (Potassium Chloride) 10 Meq Tab.er.prt, 10 MEQ PO BID, (Reported) Prednisone (Prednisone) 1 Mg Tab, 2 MG PO DAILY, (Reported) TAKES WITH 5MG FOR 7MG TOTAL Prednisone (Prednisone) 10 Mg Tablet, 5 MG PO DAILY, (Reported) TAKES WITH 2MG FOR 7MG TOTAL Vit A/Vit C/Vit E/Zinc/Copper (Icaps Areds Softgel) 1 Each Capsule, 1 CAP PO BID, (Reported) Warfarin Sodium (Warfarin Sodium) 2.5 Mg Tablet, 2.5 MG PO QPM, (Reported) TAKES AROUND 1700 Scheduled PRN Acetaminophen with Codeine (Tylenol with Codeine #3 Tablet) 1 Each Tablet, 1 TAB PO TID PRN for PAIN, (Reported) Nitroglycerin (Nitroglycerin) 0.4 Mg Sub, 0.4 MG SL NITRO PRN for CHEST PAIN, (Reported) Tramadol HCl (Tramadol HCl) 50 Mg Tablet, 50 MG PO Q6H PRN for PAIN, (Reported) Allergies Coded Allergies: adhesive tape (Verified Allergy, Mild, Itching, blisters, also bandaids, 01/08/19) pravastatin (Verified Allergy, Mild, ITCHY, 09/14/19) Sulfa (Sulfonamide Antibiotics) (Verified Allergy, Unknown, 01/08/19) latex (Verified Allergy, Unknown, Sensitivity, 01/08/19) ciprofloxacin (Verified Adverse Reaction, Intermediate, Decreased kidney function, 01/08/19) GA COLVIN DO Sep 19, 2019 14:20
== END 2019-09-19 13:10 | DRG 603 ==
LOC: M ED 16:35 → M ED INP 22:56 → ENRESERV 23:33 → M MSPAV 09-14 00:43
PROVIDERS: ADMIT Internal Medicine; ATTEND Internal Medicine
DX: L03.115 Cellulitis of right lower limb (principal); I50.32 Chronic diastolic (congestive) heart failure; N18.4 Chronic kidney disease, stage 4 (severe); I13.0 Hypertensive heart and chronic kidney disease with heart failure and stage 1 through stage 4 chronic kidney disease, or unspecified chronic kidney disease; L97.518 Non-pressure chronic ulcer of other part of right foot with other specified severity; I70.235 Atherosclerosis of native arteries of right leg with ulceration of other part of foot; I48.91 Unspecified atrial fibrillation; I25.10 Atherosclerotic heart disease of native coronary artery without angina pectoris; M19.90 Unspecified osteoarthritis, unspecified site; M10.9 Gout, unspecified; R73.03 Prediabetes; M81.0 Age-related osteoporosis without current pathological fracture; E03.9 Hypothyroidism, unspecified; K21.9 Gastro-esophageal reflux disease without esophagitis; E66.9 Obesity, unspecified; R26.81 Unsteadiness on feet; Z90.49 Acquired absence of other specified parts of digestive tract; Z87.442 Personal history of urinary calculi; Z96.652 Presence of left artificial knee joint; Z95.2 Presence of prosthetic heart valve; Z95.5 Presence of coronary angioplasty implant and graft; Z68.31 Body mass index [BMI] 31.0-31.9, adult; Z79.82 Long term (current) use of aspirin; Z79.01 Long term (current) use of anticoagulants; Z79.52 Long term (current) use of systemic steroids; Z79.899 Other long term (current) drug therapy; Z88.1 Allergy status to other antibiotic agents; Z88.2 Allergy status to sulfonamides; Z88.8 Allergy status to other drugs, medicaments and biological substances; Z91.040 Latex allergy status; Z91.048 Other nonmedicinal substance allergy status

== ENCOUNTER → 2019-09-20 | Outpatient (REF) ==
[~2019-09-20] MED LIST changes: +ACET-683 PO; +ASPI-161 PO; +ASPI81TA85 PO; +ATOR40TA75 PO; +CVS500CA5 PO; +DOXY-350 PO; +FISH1000 PO; +ICAPCAP2 PO; +LEVO50TA5 PO; +MAGN400T3 PO; +METO1TAB33 PO; -OMEP-172 PO; +OMEP1CAP73 PO; +POTA10TA67 PO; +PRED10TA2 PO; +SYNT50TA PO; +TYLETAB14 PO; +VITMTA PO; +WARF-18 PO
[2019-09-20 08:27] LABS: INR 2.23; PROTHROMBIN TIME 24.5 SECONDS (11.8-14.0)
[2019-09-20 08:28] LABS: HEMOGLOBIN 9.7 g/dl (12.0-15.5); MEAN CORPUSCULAR HEMOGLOBIN 33.1 pg (27.0-33.0); MEAN CORPUSCULAR HGB CONC 31.3 g/dl (32.0-36.5); MEAN CORPUSCULAR VOLUME 105.8 fl (80.0-96.0); PLATELET COUNT, AUTOMATED 217 10^3/uL (150-450); RED BLOOD COUNT 2.93 10^6/uL (4.00-5.40); WHITE BLOOD COUNT 8.7 10^3/uL (4.0-10.0)
[2019-09-20 08:45] LABS: ALBUMIN 2.6 GM/DL (3.2-5.2); CALCIUM LEVEL 8.4 MG/DL (8.8-10.2); CREATININE FOR GFR 2.34 MG/DL (0.55-1.30); GLOMERULAR FILTRATION RATE 20.9 (>32); MAGNESIUM LEVEL 2.4 MG/DL (1.8-2.4); PHOSPHORUS LEVEL 3.5 MG/DL (2.5-4.9); POTASSIUM SERUM 4.1 MEQ/L (3.5-5.1)
== END ==
LOC: SKLAB4 07:19
PROVIDERS: ATTEND Internal Medicine
DX: E03.9 Hypothyroidism, unspecified (principal)

== ENCOUNTER → 2019-09-24 | Outpatient (REF) ==
[2019-09-24 08:17] LABS: BASO % 0.4 % (0.0-1.0); EOS # 0.2 10^3/uL (0.0-0.5); EOS % 2.8 % (0.0-3.0); HEMATOCRIT 31.5 % (36.0-47.0); HEMOGLOBIN 9.8 g/dl (12.0-15.5); LYMPH # 0.8 10^3/uL (1.5-5.0); LYMPH % 9.4 % (24.0-44.0); MEAN CORPUSCULAR HEMOGLOBIN 33.2 pg (27.0-33.0); MEAN CORPUSCULAR HGB CONC 31.1 g/dl (32.0-36.5); MEAN CORPUSCULAR VOLUME 106.8 fl (80.0-96.0); MONO # 0.7 10^3/uL (0.0-0.8); MONO % 8.7 % (0.0-5.0); NEUTROPHILS # 6.5 10^3/uL (1.5-8.5); NEUTROPHILS % 78.2 % (36.0-66.0); PLATELET COUNT, AUTOMATED 211 10^3/uL (150-450); RED BLOOD COUNT 2.95 10^6/uL (4.00-5.40); WHITE BLOOD COUNT 8.3 10^3/uL (4.0-10.0)
[2019-09-24 08:46] LABS: ALBUMIN 2.8 GM/DL (3.2-5.2); CALCIUM LEVEL 8.1 MG/DL (8.8-10.2); CREATININE FOR GFR 2.4 MG/DL (0.55-1.30); GLOMERULAR FILTRATION RATE 20.3 (>32); PHOSPHORUS LEVEL 3.3 MG/DL (2.5-4.9); POTASSIUM SERUM 4.6 MEQ/L (3.5-5.1)
[2019-09-24 10:17] LABS: URIC ACID 3.6 MG/DL (2.6-6.0)
[2019-09-24 13:33] LABS: PTH INTACT 430.2 PG/ML (18.5-88.0)
[2019-09-24 14:31] LABS: APPEARANCE, URINE CLEAR (CLEAR); BACTERIA, URINE AUTO NEGATIVE (NEGATIVE); BILIRUBIN, URINE AUTO NEGATIVE (NEGATIVE); BLOOD, URINE BLOOD NEGATIVE (NEGATIVE); COLOR, URINE YELLOW (YELLOW); GLUCOSE, URINE (UA) AUTO NEGATIVE (NEGATIVE); KETONE, URINE AUTO NEGATIVE (NEGATIVE); LEUKOCYTE ESTERASE, URINE AUTO TRACE (NEGATIVE); MUCUS, URINE SMALL (NEGATIVE); NITRITE, URINE AUTO NEGATIVE (NEGATIVE); PROTEIN, URINE AUTO NEGATIVE (NEGATIVE); RBC, URINE AUTO 2 /HPF (0-3); SPECIFIC GRAVITY URINE AUTO 1.014 (1.002-1.035); SQUAMOUS EPITHELIAL CELL UR AU 2 /HPF (0-6); TRANSITIONAL EPITHELIAL AUTO 1 /HPF; UROBILINOGEN, URINE AUTO 0.2 mg/dL (0.0-2.0); WBC, URINE AUTO 3 /HPF (0-3)
[2019-09-24 14:36] LABS: MAGNESIUM LEVEL 2.3 MG/DL (1.8-2.4)
== END ==
LOC: SKLAB4 10:08
PROVIDERS: ATTEND Internal Medicine
DX: I50.9 Heart failure, unspecified (principal); N18.9 Chronic kidney disease, unspecified